=== PATIENT | female | born 1945 | race African-American/Black ===

== ENCOUNTER 2016-05-30 09:00 | Emergency (ER) | payer MEDICARE ==
[2016-05-30 10:06] VITALS: BP 118/77
[2016-05-30 11:13] LABS: Bilirubin,Urine NEG (Negative); Blood,Urine NEG (Negative); Ketones,Urine NEG (Negative); Leukocyte Esterase,Urine NEG (Negative); Mucus,Urine FEW /HPF; Nitrite,Urine NEG (Negative); Protein,Urine <15 mg/dL mg/dL (Negative); Urobilinogen,Urine < 2.0 mg/dL (<2.0)
[2016-05-30 11:15] LABS: WBC,Urine < 1.0 /HPF (0.0-6.0)
[2016-05-30] MEDS ORDERED: MOTRIN PO ONE (11:36)
--- NOTE | 2016-05-30 11:42 | Emergency Department Report ---
ED Female HPI - General Chief complaint: Urogenital-Female Stated complaint: ABDOMINAL PAIN Time Seen by Provider: 05/30/16 11:35 Source: patient Mode of arrival: Ambulatory Limitations: No Limitations - History of Present Illness Initial comments: 71-year-old female brought in by her daughter for complaint of suprapubic pain and urinary frequency. Patient has been followed by Dr. Martínez Vick urologist for urinary frequency and is currently on Toviaz 4 mg po qday for urinary incontinence. Patient has an appointment scheduled for 06/09/2016 for bladder scan cystoscopy. Patient denies any fever or chills no nausea no vomiting. Just urinary frequency worse at night and dysuria. - Related Data Home Medications Medication Instructions Recorded Confirmed Last Taken Budesoni/Formotero 160-4.5(Nf) 2 puff IH BID 05/30/16 05/30/16 05/30/16 [Symbicort 160-4.5 (Nf)] Fesoterodine Fumarate [Toviaz] 4 mg PO QDAY 05/30/16 05/30/16 05/30/16 Lansoprazole 30 mg PO DAILY 05/30/16 05/30/16 05/30/16 Oxybutynin [Ditropan] 5 mg PO DAILY 05/30/16 05/30/16 05/30/16 Allergies Allergy/AdvReac Type Severity Reaction Status Date / Time No Known Allergies Allergy Unverified 05/30/16 09:57 ED Review of Systems ROS: Stated complaint: ABDOMINAL PAIN Other details as noted in HPI ED Past Medical Hx - Past Medical History Previous Medical History?: Yes Hx Arthritis: Yes Hx Asthma: Yes Additional medical history: bladder pain - Surgical History Past Surgical History?: Yes Additional Surgical History: Cystoscopy, Bladder tact - Social History Smoking Status: Never Smoker Substance Use Type: Prescribed, Other - Medications Home Medications: Home Medications Medication Instructions Recorded Confirmed Last Taken Type Budesoni/Formotero 160-4.5(Nf) 2 puff IH BID 05/30/16 05/30/16 05/30/16 History [Symbicort 160-4.5 (Nf)] Fesoterodine Fumarate [Toviaz] 4 mg PO QDAY 05/30/16 05/30/16 05/30/16 History Lansoprazole 30 mg PO DAILY 05/30/16 05/30/1617 History Oxybutynin [Ditropan] 5 mg PO DAILY 05/30/16 05/30/16 05/30/16 History ED Physical Exam - General Limitations: No Limitations General appearance: alert, in no apparent distress - Head Head exam: Present: atraumatic, normocephalic - Respiratory Respiratory exam: Present: normal lung sounds bilaterally - Cardiovascular Cardiovascular Exam: Present: regular rate, normal rhythm. Absent: systolic murmur, diastolic murmur, rubs, gallop - GI/Abdominal GI/Abdominal exam: Present: soft, normal bowel sounds. Absent: distended, tenderness, guarding ED Course Vital Signs 05/30/16 10:01 Temperature 98 F Pulse Rate 69 Blood Pressure 118/77 O2 Sat by Pulse 99 Oximetry - Reevaluation(s) Reevaluation #1: 05/30/16 12:35 Patient reports she feels much better after pain medication. ED Medical Decision Making - Medical Decision Making Patient's been evaluated by this provider fast track. Review of labs show that there is no urinary tract infection. We will give patient ibuprofen 600 mg by mouth now and reevaluate patient's pain. She verbalizes understanding and need to keep her appointment with Dr. Talha Vick on 06/09/2016. Critical care attestation.: If time is entered above; I have spent that time in minutes in the direct care of this critically ill patient, excluding procedure time. ED Disposition Clinical Impression: Urinary incontinence Qualifiers: Urinary Incontinence type: unspecified incontinence Qualified Code(s): R32 - Unspecified urinary incontinence Disposition: DISCHARGED TO HOME OR SELFCARE Is pt being admited?: No Does the pt Need Aspirin: No Instructions: Urinary Incontinence (ED) Additional Instructions: Recommend free to take Tylenol or Motrin for pain. Keep your appointment with Dr. Garduno for 06/09/2016. Referrals: RENÉ POPE MD [Primary Care Provider] - 3-5 Days TALHA GARDUNO MD [Staff Physician] - 3-5 Days Forms: Work/School Release Form(ED), Accompanied Note
== END 2016-05-30 12:49 | disposition home or self-care (01) ==
LOC: ED 09:00
DX: R32 Unspecified urinary incontinence (principal); R10.9 Unspecified abdominal pain; J45.909 Unspecified asthma, uncomplicated; M19.90 Unspecified osteoarthritis, unspecified site
CPT/HCPCS: 81001; 99283

== ENCOUNTER 2017-02-22 02:07 | Emergency (ER) | payer MEDICARE ==
--- NOTE | 2017-02-22 02:52 | XRay Report ---
FINAL REPORT EXAM: XR CHEST ROUTINE 2V HISTORY: Shortness of breath FINDINGS:: Frontal and lateral views of the chest obtained. Heart borderline to mildly enlarged. Shallow inspiration. Nonspecific patchy linear opacities at the lung bases concerning for mild congestion and/or atelectasis. Pneumonia is not excluded. No effusion or pneumothorax. IMPRESSION:: Shallow inspiration. Nonspecific patchy linear opacities at the lung bases concerning for mild congestion and/or atelectasis. Pneumonia is not excluded.
[2017-02-22 03:01] LABS: Basophils % (Auto) 0.7 % (0.0-1.8); Hematocrit 41.8 % (30.3-42.9); Mean Corpuscular HGB Conc 34 % (30-34); Mean Corpuscular Hemoglobin 32 pg (28-32); Mean Corpuscular Volume 95 fl (79-97); Platelet Count 289 K/mm3 (140-440); Red Blood Count 4.42 M/mm3 (3.65-5.03); Red Cell Distribution Width 13.3 % (13.2-15.2); White Blood Count 9.5 K/mm3 (4.5-11.0)
[2017-02-22 03:23] LABS: Anion Gap 19 mmol/L; BUN/Creatinine Ratio 26; Blood Urea Nitrogen 13 mg/dL (7-17); Calcium 9.3 mg/dL (8.4-10.2); Carbon Dioxide 23 mmol/L (22-30); Chloride 99.6 mmol/L (98-107); Glucose 101 mg/dL (65-100); Sodium 138 mmol/L (137-145)
[2017-02-22] MEDS ORDERED: NACL 0.9% 1000 ML 1,000 ML IV ONE (04:24)
--- NOTE | 2017-02-22 04:34 | Emergency Department Report ---
- General Chief complaint: Dyspnea/Respdistress Stated complaint: SOB Time Seen by Provider: 02/22/17 04:21 Source: patient, family Mode of arrival: Ambulatory Limitations: Language Barrier - History of Present Illness Initial comments: 71 yo female with c/o one week of generalized weakness and insomnia. she had a face lift done one month ago in [place] and was doing fine. pt feels that her mouth is dry and hurts. MD Complaint: generalized weakness -: week(s) (1) Location: generalized Severity scale (0 -10): 9 Improves with: rest Worsens with: none Context: recent surgery Associated Symptoms: denies other symptoms - Related Data Home Medications Medication Instructions Recorded Confirmed Last Taken Budesoni/Formotero 160-4.5(Nf) 2 puff IH BID 05/30/16 05/30/16 05/30/16 [Symbicort 160-4.5 (Nf)] Fesoterodine Fumarate [Toviaz] 4 mg PO QDAY 05/30/16 05/30/16 05/30/16 Lansoprazole 30 mg PO DAILY 05/30/16 05/30/16 05/30/16 Oxybutynin [Ditropan] 5 mg PO DAILY 05/30/16 05/30/16 05/30/16 Previous Rx's Medication Instructions Recorded Last Taken Type Fluconazole [Diflucan TAB] 200 mg PO QDAY #14 tablet 02/22/17 Unknown Rx Allergies Allergy/AdvReac Type Severity Reaction Status Date / Time No Known Allergies Allergy Unverified 05/30/16 09:57 ED Review of Systems ROS: Stated complaint: SOB Other details as noted in HPI Constitutional: denies: chills, fever Eyes: denies: eye pain, eye discharge, vision change ENT: denies: ear pain, throat pain Respiratory: shortness of breath, SOB at rest. denies: cough, wheezing Cardiovascular: denies: chest pain, palpitations Endocrine: no symptoms reported Gastrointestinal: denies: abdominal pain, nausea, diarrhea Genitourinary: denies: urgency, dysuria, discharge Musculoskeletal: denies: back pain, joint swelling, arthralgia Skin: denies: rash, lesions Neurological: weakness. denies: headache, paresthesias Psychiatric: denies: anxiety, depression Hematological/Lymphatic: denies: easy bleeding, easy bruising ED Past Medical Hx - Past Medical History Previous Medical History?: Yes Hx Arthritis: Yes Hx Asthma: Yes Additional medical history: bladder pain, face lift,arthritis,asthma,cystoscopy, bladder tact - Surgical History Past Surgical History?: Yes Additional Surgical History: Cystoscopy, Bladder tact, Facelift 01/2017 - Social History Smoking Status: Never Smoker Substance Use Type: None - Medications Home Medications: Home Medications Medication Instructions Recorded Confirmed Last Taken Type Budesoni/Formotero 160-4.5(Nf) 2 puff IH BID 05/30/16 05/30/16 05/30/16 History [Symbicort 160-4.5 (Nf)] Fesoterodine Fumarate [Toviaz] 4 mg PO QDAY 05/30/16 05/30/16 05/30/16 History Lansoprazole 30 mg PO DAILY 05/30/16 05/30/16 05/30/16 History Oxybutynin [Ditropan] 5 mg PO DAILY 05/30/16 05/30/16 05/30/16 History Fluconazole [Diflucan TAB] 200 mg PO QDAY #14 tablet 02/22/17 Unknown Rx ED Physical Exam - General Limitations: Language Barrier (speaks Algerian) General appearance: alert, in no apparent distress - Head Head exam: Present: atraumatic, normocephalic, other (surgical scars around her ears) - Eye Eye exam: Present: normal appearance, EOMI - ENT ENT exam: Present: mucous membranes moist, other (edentulous) - Neck Neck exam: Present: normal inspection, full ROM - Respiratory Respiratory exam: Present: normal lung sounds bilaterally. Absent: respiratory distress, wheezes - Cardiovascular Cardiovascular Exam: Present: regular rate, normal rhythm - GI/Abdominal GI/Abdominal exam: Present: soft. Absent: tenderness, guarding, rebound - Rectal Rectal exam: Present: deferred - Extremities Exam Extremities exam: Present: normal inspection, full ROM. Absent: tenderness - Back Exam Back exam: Present: normal inspection, full ROM. Absent: tenderness - Neurological Exam Neurological exam: Present: alert, oriented X3, CN II-XII intact - Psychiatric Psychiatric exam: Present: normal affect, normal mood - Skin Skin exam: Present: warm, dry, intact, normal color. Absent: rash ED Course Vital Signs 02/22/17 02/22/17 02/22/17 02:20 03:29 03:30 Temperature 97.6 F Pulse Rate 79 66 64 Respiratory 18 16 16 Rate Blood Pressure Blood Pressure 132/88 [Right] O2 Sat by Pulse 98 Oximetry 02/22/17 02/22/17 02/22/17 03:31 03:33 03:34 Temperature Pulse Rate 73 68 68 Respiratory 19 17 17 Rate Blood Pressure 122/62 131/73 131/73 Blood Pressure [Right] O2 Sat by Pulse Oximetry 02/22/17 02/22/17 02/22/17 03:38 03:44 03:49 Temperature 98.3 F Pulse Rate 70 64 Respiratory 20 20 17 Rate Blood Pressure 123/68 Blood Pressure 122/62 [Right] O2 Sat by Pulse 97 Oximetry 02/22/17 02/22/17 02/22/17 03:51 03:52 03:53 Temperature Pulse Rate 68 61 77 Respiratory 18 18 19 Rate Blood Pressure 120/53 120/53 120/53 Blood Pressure [Right] O2 Sat by Pulse Oximetry 02/22/17 02/22/17 02/22/17 03:55 03:57 03:58 Temperature Pulse Rate 71 Respiratory 18 12 11 L Rate Blood Pressure 124/69 124/69 110/63 Blood Pressure [Right] O2 Sat by Pulse Oximetry 02/22/17 02/22/17 02/22/17 03:59 04:01 04:03 Temperature Pulse Rate Respiratory 15 18 13 Rate Blood Pressure 110/63 118/68 122/65 Blood Pressure [Right] O2 Sat by Pulse Oximetry 02/22/17 02/22/17 02/22/17 04:04 04:05 04:07 Temperature Pulse Rate Respiratory 13 18 17 Rate Blood Pressure 122/65 122/65 113/63 Blood Pressure [Right] O2 Sat by Pulse Oximetry 02/22/17 02/22/17 02/22/17 04:09 04:10 04:11 Temperature Pulse Rate Respiratory 17 17 16 Rate Blood Pressure 105/57 105/57 105/57 Blood Pressure [Right] O2 Sat by Pulse Oximetry 02/22/17 02/22/17 02/22/17 04:13 04:15 04:16 Temperature Pulse Rate Respiratory 18 17 17 Rate Blood Pressure 101/59 98/57 98/57 Blood Pressure [Right] O2 Sat by Pulse Oximetry 02/22/17 02/22/17 02/22/17 04:17 04:19 04:21 Temperature Pulse Rate Respiratory 17 18 14 Rate Blood Pressure 98/57 99/60 114/70 Blood Pressure [Right] O2 Sat by Pulse Oximetry 02/22/17 02/22/17 02/22/17 04:22 04:23 04:25 Temperature Pulse Rate Respiratory 16 18 17 Rate Blood Pressure 114/70 114/70 96/63 Blood Pressure [Right] O2 Sat by Pulse Oximetry 02/22/17 02/22/17 02/22/17 04:27 04:28 04:29 Temperature Pulse Rate Respiratory 17 16 18 Rate Blood Pressure 100/62 100/62 100/62 Blood Pressure [Right] O2 Sat by Pulse Oximetry 02/22/17 02/22/17 02/22/17 04:31 04:33 04:34 Temperature Pulse Rate Respiratory 19 19 18 Rate Blood Pressure 104/63 117/74 117/74 Blood Pressure [Right] O2 Sat by Pulse Oximetry 02/22/17 02/22/17 02/22/17 04:35 04:37 04:39 Temperature Pulse Rate Respiratory 18 13 13 Rate Blood Pressure 117/74 119/68 112/74 Blood Pressure [Right] O2 Sat by Pulse Oximetry 02/22/17 02/22/17 02/22/17 04:40 04:41 04:43 Temperature Pulse Rate Respiratory 14 15 13 Rate Blood Pressure 112/74 112/74 121/73 Blood Pressure [Right] O2 Sat by Pulse Oximetry 02/22/17 02/22/17 02/22/17 04:44 04:55 04:57 Temperature Pulse Rate Respiratory 12 13 15 Rate Blood Pressure 121/73 113/58 113/58 Blood Pressure [Right] O2 Sat by Pulse Oximetry 02/22/17 02/22/17 02/22/17 04:59 05:00 05:01 Temperature Pulse Rate Respiratory 17 18 17 Rate Blood Pressure 113/58 112/53 112/53 Blood Pressure [Right] O2 Sat by Pulse Oximetry 02/22/17 02/22/17 02/22/17 05:03 05:05 05:07 Temperature Pulse Rate Respiratory 17 17 18 Rate Blood Pressure 112/53 112/53 112/53 Blood Pressure [Right] O2 Sat by Pulse Oximetry 02/22/17 02/22/17 02/22/17 05:09 05:11 05:13 Temperature Pulse Rate Respiratory 18 15 26 H Rate Blood Pressure 112/53 112/53 112/53 Blood Pressure [Right] O2 Sat by Pulse Oximetry 02/22/17 05:15 Temperature Pulse Rate Respiratory 22 Rate Blood Pressure 112/53 Blood Pressure [Right] O2 Sat by Pulse Oximetry ED Medical Decision Making - Lab Data Result diagrams: 02/22/17 02:28 02/22/17 02:28 Critical care attestation.: If time is entered above; I have spent that time in minutes in the direct care of this critically ill patient, excluding procedure time. ED Disposition Clinical Impression: Dehydration, Thrush of mouth and esophagus Disposition: DC-01 TO HOME OR SELFCARE Is pt being admited?: No Does the pt Need Aspirin: No Condition: Stable Prescriptions: Fluconazole [Diflucan TAB] 200 mg PO QDAY #14 tablet Referrals: PRIMARY CARE, [Primary Care Provider] - 3-5 Days
[2017-02-22 05:04] LABS: Alanine Aminotransferase 33 units/L (7-56); Albumin/Globulin Ratio 1.2 %; Alkaline Phosphatase 84 units/L (35-129); Total Protein 7.3 g/dL (6.3-8.2)
[2017-02-22 05:05] LABS: Bilirubin,Direct < 0.2 mg/dL (0-0.2)
--- NOTE | 2017-02-22 05:07 | XRay Report ---
FINAL REPORT EXAM: XR CHEST ROUTINE 2V HISTORY: weakness TECHNIQUE: A repeat PA view of the chest was obtained and compared to the earlier study of the same date. FINDINGS: Heart size mediastinum appear normal. The thoracic aorta is mildly tortuous. There are no discrete infiltrates in the bases. Pleural fluid is not seen. There EKG leads overlying chest wall. Bones and soft tissues do not show any acute changes. IMPRESSION: No active chest disease.
[2017-02-22 07:40] VITALS: BP 114/72
[2017-02-22] MEDS ORDERED: DIFLUCAN 200 MG/100 ML BAG IV ONE (10:00)
== END 2017-02-22 08:20 | disposition home or self-care (01) ==
LOC: ED 02:07
DX: E86.0 Dehydration (principal); B37.81 Candidal esophagitis; B37.0 Candidal stomatitis; M19.90 Unspecified osteoarthritis, unspecified site; J45.909 Unspecified asthma, uncomplicated
CPT/HCPCS: 36415; 71020; 80048; 80074; 83880; 84484; 85025; 85379; 87116; 87430; 93005; 93010; 96361; 96365; 99284; J1450; J7030

== ENCOUNTER 2017-03-11 20:00 | Emergency (ER) | payer MEDICARE ==
[2017-03-11 21:40] LABS: Basophils % (Auto) 1.1 % (0.0-1.8); Eosinophils % (Auto) 0.8 % (0.0-4.3); Hematocrit 41.2 % (30.3-42.9); Hemoglobin 13.9 gm/dl (10.1-14.3); Mean Corpuscular HGB Conc 34 % (30-34); Mean Corpuscular Hemoglobin 32 pg (28-32); Mean Corpuscular Volume 94 fl (79-97); Platelet Count 253 K/mm3 (140-440); Red Blood Count 4.39 M/mm3 (3.65-5.03); Red Cell Distribution Width 13.3 % (13.2-15.2)
[2017-03-11 21:53] LABS: Anion Gap 16 mmol/L; BUN/Creatinine Ratio 32; Blood Urea Nitrogen 16 mg/dL (7-17); Calcium 9.1 mg/dL (8.4-10.2); Carbon Dioxide 26 mmol/L (22-30); Chloride 101.2 mmol/L (98-107); Glucose 113 mg/dL (65-100); Sodium 139 mmol/L (137-145)
--- NOTE | 2017-03-11 22:25 | XRay Report ---
FINAL REPORT EXAM: XR CHEST ROUTINE 2V HISTORY: Shortness of breath TECHNIQUE: PA and lateral views of the chest PRIORS: CXR 02/22/2017 FINDINGS: Lines, tubes, and devices: N/A Lungs and pleura: Trachea is normal in position. Mild new infiltrate in the left base is present. Cardiomediastinal silhouette: Cardiac and mediastinal silhouettes are unremarkable. Other: Bony structures are stable with superior endplate narrowing at T12 and L2. IMPRESSION: Mild new left basilar infiltrate
[2017-03-12 04:43] VITALS: BP 116/76
== END 2017-03-12 05:13 | disposition left against medical advice (07) ==
LOC: ED 20:00
DX: R06.09 Other forms of dyspnea (principal); Z53.21 Procedure and treatment not carried out due to patient leaving prior to being seen by health care provider
CPT/HCPCS: 36415; 71020; 80048; 84484; 85025; 93005; 93010

== ENCOUNTER 2017-03-28 20:54 | Emergency (ER) | payer MEDICARE ==
[2017-03-28 21:41] LABS: Basophils % (Auto) 0.6 % (0.0-1.8); Eosinophils % (Auto) 0.8 % (0.0-4.3); Hematocrit 42.6 % (30.3-42.9); Mean Corpuscular HGB Conc 33 % (30-34); Mean Corpuscular Hemoglobin 31 pg (28-32); Mean Corpuscular Volume 94 fl (79-97); Platelet Count 267 K/mm3 (140-440); Red Blood Count 4.55 M/mm3 (3.65-5.03); Red Cell Distribution Width 13.2 % (13.2-15.2); White Blood Count 9.7 K/mm3 (4.5-11.0)
[2017-03-28 21:46] LABS: Alanine Aminotransferase 34 units/L (7-56); Albumin 4.2 g/dL (3.9-5); Albumin/Globulin Ratio 1.5 %; Alkaline Phosphatase 85 units/L (35-129); Anion Gap 18 mmol/L; BUN/Creatinine Ratio 18; Blood Urea Nitrogen 9 mg/dL (7-17); Calcium 9.2 mg/dL (8.4-10.2); Carbon Dioxide 25 mmol/L (22-30); Chloride 102.5 mmol/L (98-107); Glucose 102 mg/dL (65-100); Lipase 22 units/L (13-60); Potassium 4.1 mmol/L (3.6-5.0); Sodium 141 mmol/L (137-145)
[2017-03-28 21:46] LABS: Bilirubin,Urine NEG (Negative); Blood,Urine MOD (Negative); Ketones,Urine NEG (Negative); Leukocyte Esterase,Urine TR (Negative); Mucus,Urine FEW /HPF; Nitrite,Urine NEG (Negative); Protein,Urine <15 mg/dL mg/dL (Negative); Urobilinogen,Urine < 2.0 mg/dL (<2.0)
--- NOTE | 2017-03-29 05:46 | Emergency Department Report ---
ED Abdominal Pain HPI - General Chief Complaint: Abdominal Pain Stated Complaint: WEAKNESS/BACK PAIN Time Seen by Provider: 03/29/17 04:24 Source: family Mode of arrival: Ambulatory Limitations: Language Barrier - History of Present Illness Initial Comments: 71 yo female who comes in today due to abdominal/flank pain. She states that the abdominal pain is diffuse, achy/crampy, with radiation to her right flank pain. She states that she is able to eat with no nausea/vomiting. Also admits to having constipation in the past. Last bm was on Monday. MD Complaint: abdominal pain -: days(s) (3) Location: diffuse Radiation: R flank Migration to: no migration Severity: moderate Severity scale (0 -10): 4 Quality: cramping, aching Consistency: constant Improves With: nothing Worsens With: nothing Context: other (hx of constipation ) Associated Symptoms: other (none) Treatments Prior to Arrival: other (none) - Related Data Home Medications Medication Instructions Recorded Confirmed Last Taken Budesoni/Formotero 160-4.5(Nf) 2 puff IH BID 05/30/16 05/30/16 05/30/16 [Symbicort 160-4.5 (Nf)] Fesoterodine Fumarate [Toviaz] 4 mg PO QDAY 05/30/16 05/30/16 05/30/16 Lansoprazole 30 mg PO DAILY 05/30/16 05/30/16 05/30/16 Oxybutynin [Ditropan] 5 mg PO DAILY 05/30/16 05/30/16 05/30/16 Previous Rx's Medication Instructions Recorded Last Taken Type Fluconazole [Diflucan TAB] 200 mg PO QDAY #14 tablet 02/22/17 Unknown Rx Allergies Allergy/AdvReac Type Severity Reaction Status Date / Time No Known Allergies Allergy Verified 03/28/17 20:58 ED Review of Systems ROS: Stated complaint: WEAKNESS/BACK PAIN Other details as noted in HPI Constitutional: denies: chills, fever Eyes: denies: eye pain, eye discharge, vision change ENT: denies: ear pain, throat pain Respiratory: denies: cough, shortness of breath, wheezing Cardiovascular: denies: chest pain, palpitations Endocrine: no symptoms reported Gastrointestinal: as per HPI, abdominal pain Genitourinary: denies: urgency, dysuria, discharge Musculoskeletal: as per HPI, back pain Skin: denies: rash, lesions Neurological: denies: headache, weakness, paresthesias Psychiatric: denies: anxiety, depression Hematological/Lymphatic: denies: easy bleeding, easy bruising ED Past Medical Hx - Past Medical History Hx Arthritis: Yes Hx Asthma: Yes Additional medical history: bladder pain, face lift,arthritis,asthma,cystoscopy, bladder tact, bronchitis - Surgical History Additional Surgical History: Cystoscopy, Bladder tact, Facelift 01/2017 - Social History Smoking Status: Never Smoker Substance Use Type: None - Medications Home Medications: Home Medications Medication Instructions Recorded Confirmed Last Taken Type Budesoni/Formotero 160-4.5(Nf) 2 puff IH BID 05/30/16 05/30/16 05/30/16 History [Symbicort 160-4.5 (Nf)] Fesoterodine Fumarate [Toviaz] 4 mg PO QDAY 05/30/16 05/30/16 05/30/16 History Lansoprazole 30 mg PO DAILY 05/30/16 05/30/16 05/30/16 History Oxybutynin [Ditropan] 5 mg PO DAILY 05/30/16 05/30/16 05/30/16 History Fluconazole [Diflucan TAB] 200 mg PO QDAY #14 tablet 02/22/17 Unknown Rx ED Physical Exam - General Limitations: Language Barrier General appearance: alert, in no apparent distress - Head Head exam: Present: atraumatic, normocephalic - Eye Eye exam: Present: normal appearance - ENT ENT exam: Present: mucous membranes moist - Neck Neck exam: Present: normal inspection - Respiratory Respiratory exam: Present: normal lung sounds bilaterally. Absent: respiratory distress - Cardiovascular Cardiovascular Exam: Present: regular rate, normal rhythm. Absent: systolic murmur, diastolic murmur, rubs, gallop - GI/Abdominal GI/Abdominal exam: Present: soft, normal bowel sounds - Rectal Rectal exam: Present: deferred - Extremities Exam Extremities exam: Present: normal inspection - Back Exam Back exam: Present: CVA tenderness (R) - Neurological Exam Neurological exam: Present: alert, oriented X3 - Psychiatric Psychiatric exam: Present: normal affect, normal mood - Skin Skin exam: Present: warm, dry, intact, normal color. Absent: rash ED Course Vital Signs 03/28/17 03/29/17 03/29/17 20:58 01:54 02:00 Temperature 97.7 F Pulse Rate 84 Respiratory 16 Rate Blood Pressure 123/79 121/69 102/58 O2 Sat by Pulse 97 98 96 Oximetry 03/29/17 03/29/17 03/29/17 02:01 04:06 04:30 Temperature Pulse Rate Respiratory 18 Rate Blood Pressure 102/58 102/58 O2 Sat by Pulse 97 97 98 Oximetry 03/29/17 05:30 Temperature Pulse Rate Respiratory Rate Blood Pressure 119/78 O2 Sat by Pulse 95 Oximetry - Reevaluation(s) Reevaluation #1: 03/29/17 05:[address] abdomen/pelvis without contrast (stone protocol) results. Home if CT unremarkable. Reevaluation #2: 03/29/17 06:01 Discussed the patient with Dr. Wadsworth. Dr. Wadsworth to assume care of the patient. ED Medical Decision Making - Lab Data Result diagrams: 03/28/17 21:01 03/28/17 21:01 Critical care attestation.: If time is entered above; I have spent that time in minutes in the direct care of this critically ill patient, excluding procedure time. ED Disposition Condition: Stable Instructions: Abdominal Pain (ED) Referrals: RENÉ POPE MD [Primary Care Provider] - 3-5 Days
--- NOTE | 2017-03-29 06:07 | XRay Report ---
FINAL REPORT EXAM: XR ABD SERIES W CXR 1V HISTORY: ABDOMINAL PAIN TECHNIQUE: A portable upright view the chest was obtained along with two views of the abdomen. The chest is compared to the study of 03/11/2017. FINDINGS: The chest reveals normal heart size and mediastinum. The lungs do not show infiltrates or effusions. The bones and soft tissues do not show any acute changes. The abdominal bowel gas pattern reveals a moderate amount retained feces. There are no suspicious fluid levels. Free air is not seen. There is no evidence of mass effect or suspicious calcifications. The skeletal structures reveal arthritic changes in the lumbar spine with a chronic compression fracture of L2. IMPRESSION: No active chest disease. Moderate amount retained feces in the colon. No acute process identified in the abdomen and pelvis.
--- NOTE | 2017-03-29 06:53 | Cat Scan Report ---
FINAL REPORT EXAM: CT ABDOMEN PELVIS WO CON HISTORY: abdominal/flank pain TECHNIQUE: Routine axial imaging was obtained of the abdomen and pelvis without oral or IV contrast. Sagittal and coronal reconstructions were reviewed. FINDINGS: The lung bases reveal interstitial prominence bilaterally which appears to be on a chronic basis. Pleural fluid is not seen. The heart is mildly enlarged. The liver, gallbladder, pancreas, spleen, and adrenal glands appear normal. The kidneys show no evidence of stones or hydronephrosis. Along the posterior wall of the middle 3rd of left kidney is 14.5 millimeter nodular density in the cortex. This may represent a small cortical cyst. The bowel loops are normal in caliber and course. The appendix is at the upper limits normal in size. There is no evidence of inflammatory changes of the appendix. There no evidence of free fluid or adenopathy. In the pelvis the uterus and bladder appear normal. The skeletal structures reveal multilevel disc degeneration in the lumbar spine. IMPRESSION: No evidence of renal stones or hydronephrosis. 14.5 millimeter cortical lesion in the middle 3rd of left kidney. This may represent a small cortical cyst. Ultrasound is recommended for definitive evaluation Increased markings in both lung bases which may be on a chronic basis.
--- NOTE | 2017-03-29 09:40 | Emergency Department Report ---
Blank Doc - Documentation Documentation: I examine the patient, she stated that she is feeling better but she still having some fullness in her abdomen, she stated that she did not have any bowel movement for the last 2-3 days. Patient denied any nausea or vomiting. No fever. Patient daughter told me that her mother suffer constipation. Her abdomen is soft, nontender, no guarding, no rebound tenderness, bowel sounds are normal. CT abdomen and pelvis results reviewed and as follows: Referring Physician: AZUCENA LOUIS Patient Name: RAFAELA LITTLE Date of : 1945 Sex: Female Report Date: 2017-03-29 Report Status: Finalized Findings [facility] [address] [place] [address] Cat Scan Report Signed Patient: RAFAELA LITTLE MR#: [id number] : 1945 Acct:[id number] Age/Sex: 71 / F ADM Date: 03/28/17 Loc: ED Attending Dr: Ordering Physician: AZUCENA LOUIS MD Date of Service: 03/29/17 Procedure(s): CT abdomen pelvis wo con Accession Number(s): [id number] cc: AZUCENA LOUIS MD FINAL REPORT EXAM: CT ABDOMEN PELVIS WO CON HISTORY: abdominal/flank pain TECHNIQUE: Routine axial imaging was obtained of the abdomen and pelvis without oral or IV contrast. Sagittal and coronal reconstructions were reviewed. FINDINGS: The lung bases reveal interstitial prominence bilaterally which appears to be on a chronic basis. Pleural fluid is not seen. The heart is mildly enlarged. The liver, gallbladder, pancreas, spleen, and adrenal glands appear normal. The kidneys show no evidence of stones or hydronephrosis. Along the posterior wall of the middle 3rd of left kidney is 14.5 millimeter nodular density in the cortex. This may represent a small cortical cyst. The bowel loops are normal in caliber and course. The appendix is at the upper limits normal in size. There is no evidence of inflammatory changes of the appendix. There no evidence of free fluid or adenopathy. In the pelvis the uterus and bladder appear normal. The skeletal structures reveal multilevel disc degeneration in the lumbar spine. IMPRESSION: No evidence of renal stones or hydronephrosis. 14.5 millimeter cortical lesion in the middle 3rd of left kidney. This may represent a small cortical cyst. Ultrasound is recommended for definitive evaluation Increased markings in both lung bases which may be on a chronic basis. Transcribed By: RB Dictated By: LORAINE PALAFOX MD Electronically Authenticated By: LORAINE PALAFOX MD Signed Date/Time: 03/29/17249 DD/ 9 TD/TT: 03/29/17249 Patient will be discharged with Fleet enema, lactulose and Colace prescription.
[2017-03-29 09:53] VITALS: BP 117/76
== END 2017-03-29 09:54 | disposition home or self-care (01) ==
LOC: ED 20:54
DX: R10.30 Lower abdominal pain, unspecified (principal); K59.00 Constipation, unspecified
CPT/HCPCS: 36415; 74022; 74176; 80053; 81001; 83690; 85025

== ENCOUNTER 2017-11-20 16:02 | Emergency (ER) | payer MEDICARE ==
[2017-11-20] MEDS ORDERED: NACL 0.9% 1000 ML 1,000 ML IV ONE (16:20)
[2017-11-20 16:55] LABS: Basophils # (Auto) 0.1 K/mm3 (0.0-0.1); Basophils % (Auto) 0.6 % (0.0-1.8); Eosinophils # (Auto) 0.2 K/mm3 (0.0-0.4); Eosinophils % (Auto) 1.2 % (0.0-4.3); Hemoglobin 13.1 gm/dl (10.1-14.3); Lymphocytes # (Auto) 1.8 K/mm3 (1.2-5.4); Lymphocytes % (Auto) 13.2 % (13.4-35.0); Mean Corpuscular HGB Conc 33 % (30-34); Mean Corpuscular Hemoglobin 31 pg (28-32); Mean Corpuscular Volume 94 fl (79-97); Monocytes # (Auto) 0.8 K/mm3 (0.0-0.8); Monocytes % (Auto) 5.8 % (0.0-7.3); Platelet Count 252 K/mm3 (140-440); Red Blood Count 4.26 M/mm3 (3.65-5.03); Red Cell Distribution Width 13.2 % (13.2-15.2)
[2017-11-20 17:06] LABS: Alanine Aminotransferase 42 units/L (7-56); Albumin 3.8 g/dL (3.9-5); BUN/Creatinine Ratio 40; Blood Urea Nitrogen 24 mg/dL (7-17); Calcium 9.4 mg/dL (8.4-10.2); Hemolysis Index 2; Lipase 86 units/L (13-60)
[2017-11-20 17:25] LABS: Bilirubin,Urine NEG (Negative); Blood,Urine NEG (Negative); Calcium Oxalate Crystals,Urine 3+; Mucus,Urine 3+ /HPF
[2017-11-20 17:36] LABS: Color,Urine Yellow (Yellow)
[2017-11-20] MEDS ORDERED: ZOSYN/NS 4.5GM/100ML 4.5 GM/100 ML VIAL IV ONE (23:02)
[2017-11-20] MEDS ORDERED: ZOFRAN IV ONE (23:07)
[2017-11-20] MEDS ORDERED: MORPHINE IV ONE (23:07)
--- NOTE | 2017-11-20 23:11 | Emergency Department Report ---
ED Abdominal Pain HPI - General Chief Complaint: Abdominal Pain Stated Complaint: STOMACH/BACK PAIN Time Seen by Provider: 11/20/17 23:01 Source: patient, family Mode of arrival: Ambulatory Limitations: Language Barrier - History of Present Illness Initial Comments: Patient is 72 years old female with history of asthma and arthritis. Patient presented to the ER complaining of right upper quadrant abdominal pain associated to his nausea. Patient stated that pain started after she ate some food this afternoon. Patient denied any fever or diarrhea. Patient denied chest pain or shortness of breath. MD Complaint: abdominal pain -: This morning Location: RUQ Radiation: back Migration to: no migration Severity scale (0 -10): 8 Quality: sharp Associated Symptoms: nausea - Related Data Home Medications Medication Instructions Recorded Confirmed Last Taken Budesoni/Formotero 160-4.5(Nf) 2 puff IH BID 05/30/16 05/30/16 05/30/16 [Symbicort 160-4.5 (Nf)] Fesoterodine Fumarate [Toviaz] 4 mg PO QDAY 05/30/16 05/30/16 05/30/16 Lansoprazole 30 mg PO DAILY 05/30/16 05/30/16 05/30/16 Oxybutynin [Ditropan] 5 mg PO DAILY 05/30/16 05/30/16 05/30/16 Previous Rx's Medication Instructions Recorded Last Taken Type Fluconazole [Diflucan TAB] 200 mg PO QDAY #14 tablet 02/22/17 Unknown Rx Docusate Sodium [Colace] 100 mg PO BID PRN #60 capsule 03/29/17 Unknown Rx Lactulose 10 gm PO DAILY PRN #150 ml 03/29/17 Unknown Rx Sodium Phosphate,Hardin-Dibasic 118 ml RC ONCE #1 enema 03/29/17 Unknown Rx [Fleet Enema] Allergies Allergy/AdvReac Type Severity Reaction Status Date / Time No Known Allergies Allergy Verified 03/28/17 20:58 ED Review of Systems ROS: Stated complaint: STOMACH/BACK PAIN Other details as noted in HPI Comment: All other systems reviewed and negative Constitutional: denies: chills, fever Cardiovascular: denies: chest pain Gastrointestinal: abdominal pain, nausea. denies: vomiting, diarrhea, constipation, hematemesis, melena, hematochezia Musculoskeletal: denies: back pain Neurological: denies: headache, weakness, numbness, paresthesias, confusion ED Past Medical Hx - Past Medical History Previous Medical History?: Yes Hx Arthritis: Yes Hx Asthma: Yes Additional medical history: bladder pain, face lift,arthritis,asthma,cystoscopy, bladder tact, bronchitis - Surgical History Past Surgical History?: Yes Additional Surgical History: Cystoscopy, Bladder tact, Facelift 01/2017 - Social History Smoking Status: Never Smoker Substance Use Type: None - Medications Home Medications: Home Medications Medication Instructions Recorded Confirmed Last Taken Type Budesoni/Formotero 160-4.5(Nf) 2 puff IH BID 05/30/16 05/30/16 05/30/16 History [Symbicort 160-4.5 (Nf)] Fesoterodine Fumarate [Toviaz] 4 mg PO QDAY 05/30/16 05/30/16 05/30/16 History Lansoprazole 30 mg PO DAILY 05/30/16 05/30/16 05/30/16 History Oxybutynin [Ditropan] 5 mg PO DAILY 05/30/16 05/30/16 05/30/16 History Fluconazole [Diflucan TAB] 200 mg PO QDAY #14 tablet 02/22/17 Unknown Rx Docusate Sodium [Colace] 100 mg PO BID PRN #60 capsule 03/29/17 Unknown Rx Lactulose 10 gm PO DAILY PRN #150 ml 03/29/17 Unknown Rx Sodium Phosphate,Hardin-Dibasic 118 ml RC ONCE #1 enema 03/29/17 Unknown Rx [Fleet Enema] ED Physical Exam - General Limitations: Language Barrier General appearance: alert, in no apparent distress - Head Head exam: Present: atraumatic, normocephalic, normal inspection - ENT ENT exam: Present: normal exam, normal orophraynx, mucous membranes moist - Neck Neck exam: Present: normal inspection, full ROM. Absent: tenderness, meningismus, lymphadenopathy, thyromegaly - Respiratory Respiratory exam: Present: normal lung sounds bilaterally - Cardiovascular Cardiovascular Exam: Present: regular rate, normal rhythm, normal heart sounds - GI/Abdominal GI/Abdominal exam: Present: soft, tenderness (right upper quadrant), normal bowel sounds. Absent: distended, guarding, rebound, rigid, organomegaly, mass, bruit, pulsatile mass, hernia - Extremities Exam Extremities exam: Present: normal inspection, full ROM, normal capillary refill. Absent: calf tenderness - Neurological Exam Neurological exam: Present: alert, oriented X3, CN II-XII intact, normal gait, reflexes normal - Skin Skin exam: Present: warm, intact, normal color ED Course Vital Signs 11/20/17 11/20/17 16:14 20:35 Temperature 97.5 F L 98.2 F Pulse Rate 60 63 Respiratory 18 18 Rate Blood Pressure 95/71 118/67 O2 Sat by Pulse 96 98 Oximetry - Reevaluation(s) Reevaluation #1: 11/21/17 00:09 I discussed the patient is Dr. Wilson from surgery, he advised to see the patient pain is controlled patient can be discharged to follow-up with him in his office today for possible elective cholecystectomy already the patient then is not controlled and be admitted to the hospitalist and he will be consulted. ED Medical Decision Making - Lab Data Result diagrams: 11/20/17 16:23 11/20/17 16:23 - Medical Decision Making Patient stated that she is feeling much better, pain completely resolved.. Per Dr. Wilson patient can be discharged home and follow-up with him in his office today. Patient and daughter understood that and instruction very well. Critical care attestation.: If time is entered above; I have spent that time in minutes in the direct care of this critically ill patient, excluding procedure time. ED Disposition Clinical Impression: Abdominal pain, Gallbladder calculus Disposition: DC-01 TO HOME OR SELFCARE Is pt being admited?: No Condition: Stable Instructions: Abdominal Pain (ED), Biliary Colic (ED), Cholecystitis (ED) Referrals: JOHN WILSON MD [Staff Physician] - 24 Hours
--- NOTE | 2017-11-20 23:21 | Ultrasound Report ---
FINAL REPORT EXAM: US ABDOMEN LIMITED HISTORY: RUQ pain with h/o gallstones TECHNIQUE: Grayscale and color-flow imaging of the right upper quadrant was performed. Comparison: CT abdomen and pelvis dated March 29, 2017 FINDINGS: Liver: Visualization of detail is somewhat limited by artifact likely created by body habitus. There is increased echogenicity of the liver suggestive of fatty infiltration. Gallbladder: Moderately distended and contains numerous shadowing gallstones. There is no demonstration of pericholecystic fluid. There is increased thickness of the gallbladder wall (3.6 millimeters).. This is a nonspecific finding. Common bile duct: Dilated (9.1 millimeters). Right kidney: Measures 11.4 centimeters in the maximal craniocaudal dimension. There is no demonstration of hydronephrosis, renal calculi or renal mass. IMPRESSION: 1. Numerous gallstones within the gallbladder with increased thickness of the gallbladder wall 2. Dilated common bile duct. This appears to be new since the previous CT abdomen and pelvis dated March 29, 2017.
[2017-11-21 02:10] VITALS: BP 110/56
== END 2017-11-21 02:17 | disposition home or self-care (01) ==
LOC: ED 16:02
DX: K80.20 Calculus of gallbladder without cholecystitis without obstruction (principal); M19.90 Unspecified osteoarthritis, unspecified site; J45.909 Unspecified asthma, uncomplicated
CPT/HCPCS: 36415; 76705; 80053; 81001; 82962; 83690; 85025; 93005; 93010; 96365; 96375; 99284; J2270; J2405; J2543

== ENCOUNTER 2018-10-01 05:01 | Observation (INO) | payer MEDICARE ==
[2018-10-01] MEDS ORDERED: ASPIRIN PO ONE (05:09)
[2018-10-01 05:32] LABS: Basophils # (Auto) 0.1 K/mm3 (0.0-0.1); Basophils % (Auto) 1.3 % (0.0-1.8); Eosinophils # (Auto) 0.3 K/mm3 (0.0-0.4); Eosinophils % (Auto) 5.2 % (0.0-4.3); Hematocrit 41.2 % (30.3-42.9); Lymphocytes # (Auto) 1.8 K/mm3 (1.2-5.4); Lymphocytes % (Auto) 26.1 % (13.4-35.0); Mean Corpuscular HGB Conc 34 % (30-34); Mean Corpuscular Volume 94 fl (79-97); Monocytes # (Auto) 0.6 K/mm3 (0.0-0.8); Monocytes % (Auto) 9.1 % (0.0-7.3); Platelet Count 246 K/mm3 (140-440); Red Blood Count 4.38 M/mm3 (3.65-5.03); Red Cell Distribution Width 12.9 % (13.2-15.2)
[2018-10-01 05:56] LABS: BUN/Creatinine Ratio 30; Blood Urea Nitrogen 15 mg/dL (7-17); Calcium 9.1 mg/dL (8.4-10.2); Hemolysis Index 7
[2018-10-01] MEDS ORDERED: PROVENTIL IH ONE (07:36)
[2018-10-01] MEDS ORDERED: ATROVENT IH ONE (07:36)
[2018-10-01] MEDS ORDERED: SOLU-Medrol IV ONE (07:36)
[2018-10-01] MEDS ORDERED: NACL 0.9% 1000 ML 1,000 ML IV ONE (07:36)
--- NOTE | 2018-10-01 07:40 | Emergency Department Report ---
HPI - General Chief Complaint: Chest Pain Time Seen by Provider: 10/01/18 07:12 - HPI HPI: 73-year-old female presents to the emergency department with a complaint of a few weeks of some intermittent chest tightness and heaviness and shortness of breath. Patient feels that there are some gas pains in the upper chest. She has a past medical history of asthma, high cholesterol. She denies any tobacco or illicit drug use. She was seen her primary care physician recently, Dr. Rios, to increase her use of her albuterol inhaler or nebulizer treatments but this has not helped. No recent travel or sick contacts at home. Patient does not speak much Uzbek so her daughter is currently at bedside during translation. ED Past Medical Hx - Past Medical History Hx Arthritis: Yes Hx Asthma: Yes Additional medical history: bladder pain, face lift,arthritis,asthma,cystoscopy,bladder tact, bronchitis - Surgical History Past Surgical History?: Yes Hx Cholecystectomy: Yes Additional Surgical History: Cystoscopy, Bladder tact, Facelift 01/2017 - Social History Smoking Status: Never Smoker Substance Use Type: None - Medications Home Medications: Home Medications Medication Instructions Recorded Confirmed Last Taken Type Budesoni/Formotero 160-4.5(Nf) 2 puff IH BID 05/30/16 05/30/16 05/30/16 History [Symbicort 160-4.5 (Nf)] Fesoterodine Fumarate [Toviaz] 4 mg PO QDAY 05/30/16 05/30/16 05/30/16 History Lansoprazole 30 mg PO DAILY 05/30/16 05/30/16 05/30/16 History Oxybutynin [Ditropan] 5 mg PO DAILY 05/30/16 05/30/16 05/30/16 History Fluconazole [Diflucan TAB] 200 mg PO QDAY #14 tablet 02/22/17 Unknown Rx Docusate Sodium [Colace] 100 mg PO BID PRN #60 capsule 03/29/17 Unknown Rx Lactulose 10 gm PO DAILY PRN #150 ml 03/29/17 Unknown Rx Sodium Phosphate,[place]ley-Dibasic 118 ml RC ONCE #1 enema 03/29/17 Unknown Rx [Fleet Enema] Amoxicillin/Potassium Clav 1 each PO BID #14 tablet 11/21/17 Unknown Rx [Augmentin 875-125 Tablet] Ondansetron [Zofran Odt] 4 mg PO Q8HR PRN #14 tab.rapdis 11/21/17 Unknown Rx oxyCODONE /ACETAMINOPHEN [Percocet 1 tab PO Q6HR PRN #14 tablet 11/21/17 Unknown Rx 5/325] ED Review of Systems ROS: Stated complaint: CHEST PAIN/HARD TO BREATH Other details as noted in HPI Comment: All other systems reviewed and negative Constitutional: denies: chills, fever Eyes: denies: eye pain, vision change ENT: denies: ear pain, throat pain Respiratory: cough, shortness of breath, wheezing Cardiovascular: chest pain. denies: edema Gastrointestinal: denies: abdominal pain, vomiting Genitourinary: denies: dysuria, discharge Musculoskeletal: denies: back pain, arthralgia Skin: denies: rash, lesions Neurological: denies: headache, weakness Physical Exam - Physical Exam Vital Signs: Vital Signs 10/01/18 10/01/18 05:03 06:10 Temperature 98.2 F 98.1 F Pulse Rate 69 67 Respiratory 18 19 Rate Blood Pressure 135/81 Blood Pressure 122/85 [Left] O2 Sat by Pulse 96 94 Oximetry Physical Exam: GENERAL: The patient is well-developed well-nourished. HENT: Normocephalic. Atraumatic. Patient has moist mucous membranes. EYES: Extraocular motions are intact. NECK: Supple. Trachea is midline. CHEST/LUNGS: Mild wheezing throughout the chest. No tachypnea or accessory muscle use. There is no respiratory distress noted. HEART/CARDIOVASCULAR: Regular. There is no tachycardia. There is no murmur. ABDOMEN: Abdomen is soft, nontender. Patient has normal bowel sounds. There is no abdominal distention. SKIN: Skin is warm and dry. NEURO: The patient is awake, alert, and oriented. The patient is cooperative. The patient has no focal neurologic deficits. The patient has normal speech. MUSCULOSKELETAL: There is no tenderness or deformity. There is no evidence of acute injury. ED Course Vital Signs 10/01/18 10/01/18 05:03 06:10 Temperature 98.2 F 98.1 F Pulse Rate 69 67 Respiratory 18 19 Rate Blood Pressure 135/81 Blood Pressure 122/85 [Left] O2 Sat by Pulse 96 94 Oximetry ED Medical Decision Making - Lab Data Result diagrams: 10/01/18 12:56 10/01/18 12:56 - EKG Data -: EKG Interpreted by Me EKG shows normal: sinus rhythm, axis, intervals, QRS complexes, ST-T waves Rate: normal - EKG Data When compared to previous EKG there are: no significant change Interpretation: unchanged when compared t (11/20/17) - Radiology Data Radiology results: report reviewed, image reviewed interpreted by me: Chest x-ray does not show any acute process. There are no pleural effusions, obvious pneumonia and there is no pneumothorax. CTA CHEST: HISTORY: chest pain. COMPARISON: none. TECHNIQUE: Helical CT in 1.25mm intervals following IV contrast. Pulmonary embolus protocol. Sagittal and coronal reformatted images. Rotational MIP images. FINDINGS: Contrast bolus is satisfactory. No pulmonary embolus is identified. Thyroid gland: Normal. Tracheobronchial tree: Normal. Esophagus: Normal. Heart: Normal. Pericardium: Normal. Mediastinum: Normal. Lung Dinero: Minor segmental atelectasis is identified in the middle lobe, right lower lobe and lingula. No evidence for pneumonia or mass. Pleural Spaces: Normal. Musculoskeletal: Osteopenia. Healing non-displaced left anterior third and fourth rib fractures are identified. IMPRESSION: No evidence for pulmonary embolus. Mild bilateral atelectatic changes. Healing left anterior third and fourth rib fractures. Transcribed By: TTR Dictated By: JENNIFER MURRELL JR, MD Electronically Authenticated By: JENNIFER MURRELL JR, MD Signed Date/Time: 10/01/18 1057 - Medical Decision Making Patient presents to the emergency department with complaint of some back pain, chest pain and shortness of breath. She has some mild bronchospasm but does not appear in any respiratory distress. She was given some steroids and a breathing treatment and given an aspirin. Chest x-ray does not show any focal consolidation, pneumothorax, pneumonia, pleural effusions, or any other acute process. Patient has had negative troponins 2 doses 5. She had a slightly elevated and equivocal d-dimer so a CT angiography of the chest was done that did not show any signs of any pulmonary embolism, dissection or aneurysm. Patient still continues to have some mild chest pressure and has not had a full cardiac workup. Therefore she will be admitted to the hospital for further evaluation and treatment and was accepted for admission by the hospitalist service. - Differential Diagnosis [place], PE, CHF, pneumonia Critical Care Time: No Critical care attestation.: If time is entered above; I have spent that time in minutes in the direct care of this critically ill patient, excluding procedure time. ED Disposition Clinical Impression: Acute chest pain, Bronchospasm Disposition: OP ADMIT IP TO THIS HOSP Is pt being admited?: Yes Condition: Fair Time of Disposition: 10:20
--- NOTE | 2018-10-01 08:58 | XRay Report ---
PROCEDURE: XR CHEST 1V AP TECHNIQUE: Chest radiograph single view. HISTORY: Chest Pain COMPARISONS: 03/11/2017 . FINDINGS: No mediastinal shift. Cardiac silhouette is not enlarged. Linear bibasilar atelectasis/scarring. No p neumothorax, definite effusion, or focal airspace disease identified. No acute skeletal findings. IMPRESSION: No acute pulmonary finding identified. This document is electronically signed by Magdaleno Powers MD., October 01 2018 08:55:59 AM ET
--- NOTE | 2018-10-01 11:03 | Cat Scan Report ---
CTA CHEST: HISTORY: chest pain. COMPARISON: none. TECHNIQUE: Helical CT in 1.25mm intervals following IV contrast. Pulmonary embolus protocol. Sagittal and coronal reformatted images. Rotational MIP images. FINDINGS: Contrast bolus is satisfactory. No pulmonary embolus is identified. Thyroid gland: Normal. Tracheobronchial tree: Normal. Esophagus: Normal. Heart: Normal. Pericardium: Normal. Mediastinum: Normal. Lung Dinero: Minor segmental atelectasis is identified in the middle lobe, right lower lobe and lingula. No evidence for pneumonia or mass. Pleural Spaces: Normal. Musculoskeletal: Osteopenia. Healing non-displaced left anterior third and fourth rib fractures are identified. IMPRESSION: No evidence for pulmonary embolus. Mild bilateral atelectatic changes. Healing left anterior third and fourth rib fractures.
[2018-10-01] MEDS ORDERED: TYLENOL PO PRN (12:03)
[2018-10-01] MEDS ORDERED: ZOFRAN IV PRN (12:03)
[2018-10-01] MEDS ORDERED: SODIUM CHLORIDE FLUSH SYRINGE 10 ML IV PRN ×2 (12:03)
--- NOTE | 2018-10-01 12:03 | History and Physical Report ---
History of Present Illness Date of examination: 10/01/18 Date of admission: 10/01/18 09:57 Chief complaint: cp History of present illness: 73-year-old female with past medical history of asthma and hypercholesterolemia presents to the emergency department with a complaint of a few weeks of some intermittent chest tightness and heaviness and shortness of breath. Patient feels that there are some gas pains in the upper chest. She denies any tobacco or illicit drug use. She was seen her primary care physician recently, Dr. Rios, to increase her use of her albuterol inhaler or nebulizer treatments but this has not improved her symptoms. No recent travel or sick contacts at home. Patient does not speak much Spanish so her daughter is currently at bedside during translation. No reports of fever chills. No cough or cold-like symptoms. No headache or visual disturbance. Past History Past Medical History: hyperlipidemia, other (asthma) Past Surgical History: No surgical history Social history: no significant social history Family history: no significant family history Medications and Allergies Allergies Allergy/AdvReac Type Severity Reaction Status Date / Time No Known Allergies Allergy Verified 03/28/17 20:58 Home Medications Medication Instructions Recorded Confirmed Last Taken Type Budesoni/Formotero 160-4.5(Nf) 2 puff IH BID 05/30/16 05/30/16 05/30/16 History [Symbicort 160-4.5 (Nf)] Fesoterodine Fumarate [Toviaz] 4 mg PO QDAY 05/30/16 05/30/16 05/30/16 History Lansoprazole 30 mg PO DAILY 05/30/16 05/30/16 05/30/16 History Oxybutynin [Ditropan] 5 mg PO DAILY 05/30/16 05/30/16 05/30/16 History Fluconazole [Diflucan TAB] 200 mg PO QDAY #14 tablet 02/22/17 Unknown Rx Docusate Sodium [Colace] 100 mg PO BID PRN #60 capsule 03/29/17 Unknown Rx Lactulose 10 gm PO DAILY PRN #150 ml 03/29/17 Unknown Rx Sodium Phosphate,[place]-Dibasic 118 ml RC ONCE #1 enema 03/29/17 Unknown Rx [Fleet Enema] Amoxicillin/Potassium Clav 1 each PO BID #14 tablet 11/21/17 Unknown Rx [Augmentin 875-125 Tablet] Ondansetron [Zofran Odt] 4 mg PO Q8HR PRN #14 tab.rapdis 11/21/17 Unknown Rx oxyCODONE /ACETAMINOPHEN [Percocet 1 tab PO Q6HR PRN #14 tablet 11/21/17 Unknown Rx 5/325] Review of Systems All systems: negative Exam - Constitutional Vitals: Temp Pulse Resp BP Pulse Ox 98.2 F 74 16 120/71 99 10/01/18 11:30 10/01/18 11:30 10/01/18 11:30 10/01/18 11:30 10/01/18 11:30 General appearance: Present: no acute distress, well-nourished - EENT Eyes: Present: PERRL ENT: hearing intact, clear oral mucosa - Neck Neck: Present: supple, normal ROM - Respiratory Respiratory effort: normal Respiratory: bilateral: CTA - Cardiovascular Heart Sounds: Present: S1 & S2. Absent: rub, click - Extremities Extremities: pulses symmetrical, No edema Peripheral Pulses: within normal limits - Abdominal General gastrointestinal: Present: soft, non-tender, non-distended, normal bowel sounds Female genitourinary: Present: normal - Integumentary Integumentary: Present: clear, warm, dry - Musculoskeletal Musculoskeletal: gait normal, strength equal bilaterally - Psychiatric Psychiatric: appropriate mood/affect, intact judgment & insight - Neurologic Neurologic: CNII-XII intact, moves all extremities Results - Labs CBC & Chem 7: 10/01/18 05:22 10/01/18 05:22 Labs: Laboratory Last Values WBC 6.8 K/mm3 (4.5-11.0) 10/01/18 05:22 RBC 4.38 M/mm3 (3.65-5.03) 10/01/18 05:22 Hgb 14.0 gm/dl (10.1-14.3) 10/01/18 05:22 Hct 41.2 % (30.3-42.9) 10/01/18 05:22 MCV 94 fl (79-97) 10/01/18 05:22 MCH 32 pg (28-32) 10/01/18 05:22 MCHC 34 % (30-34) 10/01/18 05:22 RDW 12.9 % (13.2-15.2) L 10/01/18 05:22 Plt Count 246 K/mm3 (140-440) 10/01/18 05:22 Lymph % (Auto) 26.1 % (13.4-35.0) 10/01/18 05:22 [place] % (Auto) 9.1 % (0.0-7.3) H 10/01/18 05:22 Eos % (Auto) 5.2 % (0.0-4.3) H 10/01/18 05:22 Baso % (Auto) 1.3 % (0.0-1.8) 10/01/18 05:22 Lymph # 1.8 K/mm3 (1.2-5.4) 10/01/18 05:22 [place] # 0.6 K/mm3 (0.0-0.8) 10/01/18 05:22 Eos # 0.3 K/mm3 (0.0-0.4) 10/01/18 05:22 Baso # 0.1 K/mm3 (0.0-0.1) 10/01/18 05:22 Seg Neutrophils % 58.3 % (40.0-70.0) 10/01/18 05:22 Seg Neutrophils # 4.0 K/mm3 (1.8-7.7) 10/01/18 05:22 281.03 ng/mlDDU (0-234) H 10/01/18 08:50 Sodium 143 mmol/L (137-145) 10/01/18 05:22 Potassium 4.0 mmol/L (3.6-5.0) 10/01/18 05:22 Chloride 107.3 mmol/L (98-107) H 10/01/18 05:22 Carbon Dioxide 23 mmol/L (22-30) 10/01/18 05:22 17 mmol/L 10/01/18 05:22 BUN 15 mg/dL (7-17) 10/01/18 05:22 0.5 mg/dL (0.7-1.2) L 10/01/18 05:22 Estimated GFR > 60 ml/min 10/01/18 05:22 30 % 10/01/18 05:22 Glucose 99 mg/dL (65-100) 10/01/18 05:22 Calcium 9.1 mg/dL (8.4-10.2) 10/01/18 05:22 < 0.010 ng/mL (0.00-0.029) 10/01/18 11:18 Assessment and Plan Assessment and plan: Chest pain. Patient will replace some chest pain pathway. Follow-up serial cardiac isoenzymes and EKG. Lexiscan in a.m. Acute Asthma exacerbation. Continue asthma pathway. Systemic steroids, bronchodilators/nebulizer treatments. Empiric antibiotics. Hyperlipidemia. Continue statins.
[2018-10-01 13:22] LABS: Basophils # (Auto) 0.1 K/mm3 (0.0-0.1); Basophils % (Auto) 1.1 % (0.0-1.8); Eosinophils % (Auto) 0.1 % (0.0-4.3); Hematocrit 44.6 % (30.3-42.9); Hemoglobin 15.1 gm/dl (10.1-14.3); Lymphocytes # (Auto) 0.8 K/mm3 (1.2-5.4); Lymphocytes % (Auto) 15.3 % (13.4-35.0); Mean Corpuscular HGB Conc 34 % (30-34); Mean Corpuscular Volume 94 fl (79-97); Monocytes # (Auto) 0.1 K/mm3 (0.0-0.8); Monocytes % (Auto) 0.9 % (0.0-7.3); Platelet Count 258 K/mm3 (140-440); Red Blood Count 4.75 M/mm3 (3.65-5.03); Red Cell Distribution Width 12.8 % (13.2-15.2)
[2018-10-01 13:45] LABS: BUN/Creatinine Ratio 28; Blood Urea Nitrogen 11 mg/dL (7-17); Calcium 8.7 mg/dL (8.4-10.2); Hemolysis Index 8
--- NOTE | 2018-10-01 14:28 | Consultation ---
History of Present Illness Consult date: 10/01/18 Requesting physician: NUBIA LEVY Consult reason: chest pain History of present illness: The pt is a 73 YO female with a past medical history of asthma, arthritis and HLP. Pt does not speak [place] and thus HPI is obtained with the help of her daughter who is translating at bedside. She presented to the emergency department with a complaint of a few weeks of some intermittent chest tightness and heaviness and shortness of breath. Pt states her discomfort is mostly present when coughing. She was seen her primary care physician recently, Dr. Rios, to increase her use of her albuterol inhaler or nebulizer treatments but this has not helped. ECG with NAF, Reji negative for AMI. CXR with NAF, chest CTA negative for PE. Past History Past Medical History: hyperlipidemia, other (asthma) Past Surgical History: No surgical history Social history: no significant social history Family history: no significant family history Medications and Allergies Allergies Allergy/AdvReac Type Severity Reaction Status Date / Time No Known Allergies Allergy Verified 03/28/17 20:58 Home Medications Medication Instructions Recorded Confirmed Last Taken Type Budesoni/Formotero 160-4.5(Nf) 2 puff IH BID 05/30/16 10/01/18 05/30/16 History [Symbicort 160-4.5 (Nf)] Fesoterodine Fumarate [Toviaz] 4 mg PO QDAY 05/30/16 10/01/18 05/30/16 History Lansoprazole 30 mg PO DAILY 05/30/16 10/01/18 05/30/16 History Oxybutynin [Ditropan] 5 mg PO DAILY 05/30/16 10/01/18 05/30/16 History Fluconazole [Diflucan TAB] 200 mg PO QDAY #14 tablet 02/22/17 10/01/18 Unknown Rx Docusate Sodium [Colace] 100 mg PO BID PRN #60 capsule 03/29/17 10/01/18 Unknown Rx Lactulose 10 gm PO DAILY PRN #150 ml 03/29/17 10/01/18 Unknown Rx Amoxicillin/Potassium Clav 1 each PO BID #14 tablet 11/21/17 10/01/18 Unknown Rx [Augmentin 875-125 Tablet] Ondansetron [Zofran Odt] 4 mg PO Q8HR PRN #14 tab.rapdis 11/21/17 10/01/18 Un known Rx oxyCODONE /ACETAMINOPHEN [Percocet 1 tab PO Q6HR PRN #14 tablet 11/21/17 10/01/18 Unknown Rx 5/325] Sodium Phosphate,[place]-Dibasic 188 ml RC ONCE 10/01/18 10/01/18 Unknown History [Fleet Enema] Active Meds: Active Medications Acetaminophen (Tylenol) 650 mg PO Q4H PRN PRN Reason: Pain MILD(1-3)/Fever >100.5/HULL Albuterol/Ipratropium (Duoneb *Not For Prn Use*) 1 ampul IH Q6HRT JEANMARIE Ceftriaxone Sodium (Rocephin/Ns 1 Gm/50 Ml) 1 gm in 50 mls @ 100 mls/hr IV Q24HR JEANMARIE; Protocol Methylprednisolone Sodium Succinate (Solu-Medrol) 40 mg IV Q8HR JEANMARIE Ondansetron HCl (Zofran) 4 mg IV Q8H PRN PRN Reason: Nausea And Vomiting Sodium Chloride (Sodium Chloride Flush Syringe 10 Ml) 10 ml IV BID JEANMARIE Sodium Chloride (Sodium Chloride Flush Syringe 10 Ml) 10 ml IV PRN PRN PRN Reason: LINE FLUSH Review of Systems Constitutional: no weight loss, no weight gain, no fever, no chills, no sweats Ears, nose, mouth and throat: no ear pain, no nose pain, no sinus pressure, no sinus pain Cardiovascular: chest pain, shortness of breath, dyspnea on exertion, no or thopnea, no palpitations, no rapid/irregular heart beat, no edema, no syncope, no lightheadedness Respiratory: cough, shortness of breath, dyspnea on exertion, wheezing, pain (with coughing) Gastrointestinal: no abdominal pain, no nausea, no vomiting, no diarrhea, no constipation Genitourinary Female: no pelvic pain, no flank pain, no dysuria, no urinary frequency, no urgency Musculoskeletal: no neck stiffness, no neck pain, no shooting arm pain, no arm numbness/tingling, no low back pain, no shooting leg pain Integumentary: no rash, no pruritis, no redness, no sores, no wounds Neurological: no head injury, no paralysis, no weakness, no parathesias, no numbness, no tingling, no seizures, no syncope Psychiatric: no anxiety Endocrine: no cold intolerance, no heat intolerance Hematologic/Lymphatic: no easy bruising, no easy bleeding Allergic/Immunologic: no urticaria Physical Examination Vital Signs Temp Pulse Resp BP Pulse Ox 98.2 F 69 18 135/81 96 10/01/18 05:03 10/01/18 05:03 10/01/18 05:03 10/01/18 05:03 10/01/18 05:03 General appearance: no acute distress HEENT: Positive: PERRL, Normocephaly, Mucus Membranes Moist Neck: Positive: neck supple, trachea midline Cardiac: Positive: Reg Rate and Rhythm, S1/S2 Lungs: Positive: Decreased Breath Sounds Neuro: Positive: Grossly Intact Abdomen: Negative: Tender Skin: Negative: Rash Musculoskeletal: No Pain Extremities: Absent: edema Results 10/01/18 12:56 10/01/18 12:56 CBC 10/01/18 10/01/18 Range/Units 05:22 12:56 WBC 6.8 5.4 (4.5-11.0) K/mm3 RBC 4.38 4.75 (3.65-5.03) M/mm3 Hgb 14.0 15.1 H (10.1-14.3) gm/dl Hct 41.2 44.6 H (30.3-42.9) % Plt Count 246 258 (140-440) K/mm3 Lymph # 1.8 0.8 L (1.2-5.4) K/mm3 [place] # 0.6 0.1 (0.0-0.8) K/mm3 Eos # 0.3 0.0 (0.0-0.4) K/mm3 Baso # 0.1 0.1 (0.0-0.1) K/mm3 Comprehensive Metabolic Panel 10/01/18 10/01/18 Range/Units 05:22 12:56 Sodium 143 140 (137-145) mmol/L Potassium 4.0 3.8 (3.6-5.0) mmol/L Chloride 107.3 H 105.0 (98-107) mmol/L Carbon Dioxide 23 22 (22-30) mmol/L BUN 15 11 (7-17) mg/dL Creatinine 0.5 L 0.4 L (0.7-1.2) mg/dL Glucose 99 141 H (65-100) mg/dL Calcium 9.1 8.7 (8.4-10.2) mg/dL - Imaging and Cardiology Echo: pending EKG: report reviewed, image reviewed EKG interpretations - Telemetry EKG Rhythm: Sinus Rhythm - EKG Sinus rhythms and dysrhythmias: sinus rhythm Assessment and Plan Chest pain currently appears pleuritic. AMI ruled out. Will plan to proceed with lexiscan MPI stress test in AM and obtain echo. NPO after MN. The patient has been seen in conjunction with Dr. Ryan Miller who agrees with the assessment and plan of care. - Patient Problems (1) Chest pain Current Visit: Yes Status: Acute (2) Asthma Current Visit: Yes Status: Chronic (3) Hyperlipidemia Current Visit: Yes Status: Chronic
[2018-10-01] MEDS: DUONEB *Not for PRN Use IH SCH ×2 (14:40→20:05)
[2018-10-01] MEDS: SOLU-Medrol IV SCH ×2 (14:40→23:09)
[2018-10-01] MEDS: ROBITUSSIN PO PRN (23:09)
[2018-10-01] MEDS: SODIUM CHLORIDE FLUSH SYRINGE 10 ML IV SCH (23:09)
[2018-10-02] MEDS: DUONEB *Not for PRN Use IH SCH ×4 (01:48→19:48)
[2018-10-02] MEDS: SOLU-Medrol IV SCH ×3 (05:26→22:25)
[2018-10-02] MEDS ORDERED: LEXISCAN IV ONE ×2 (08:28→09:02)
[2018-10-02] MEDS: ROCEPHIN/NS 1 GM/50 ML 1 GM/50 ML BAG IV SCH (10:48)
[2018-10-02] MEDS: SODIUM CHLORIDE FLUSH SYRINGE 10 ML IV SCH ×2 (10:49→22:24)
--- NOTE | 2018-10-02 14:53 | Progress Note ---
Assessment and Plan S/p lexiscan MPI stress test today which was negative. TTE reviewed. Currently stable cardiac status. Pt may discharge home from cardiology standpoint. Recommend pt follow up in our office with Dr. Ryan Miller within 1-2 weeks of hospital discharge ([phone]). The patient has been seen in conjunction with Dr. Ryan Miller who agrees with the assessment and plan of care. - Patient Problems (1) Chest pain Current Visit: Yes Status: Resolved (2) Asthma Current Visit: Yes Status: Chronic (3) Hyperlipidemia Current Visit: Yes Status: Chronic Subjective Date of service: 10/02/18 Principal diagnosis: cp Interval history: pt for stress test. no current complaints. Objective Last Vital Signs Temp 98.3 F 10/02/18 03:44 Pulse 80 10/02/18 14:22 Resp 18 10/02/18 14:22 BP 111/66 10/02/18 09:13 Pulse Ox 90 10/02/18 03:44 - Physical Examination General: No Apparent Distress HEENT: Positive: PERRL, Normocephaly, Mucus Membranes Moist Neck: Positive: neck supple, trachea midline Cardiac: Positive: Reg Rate and Rhythm, S1/S2 Lungs: Positive: Decreased Breath Sounds Neuro: Positive: Grossly Intact Abdomen: Negative: Tender Skin: Negative: Rash Musculoskeletal: No Pain Extremities: Absent: edema - Imaging and Cardiology EKG: report reviewed, image reviewed Echo: pending - EKG Sinus rhythms and dysrhythmias: sinus rhythm
--- NOTE | 2018-10-02 17:17 | Treadmill Report ---
NUCLEAR PERFUSION SCAN REFERRING PHYSICIAN: Buck Gipson MD PROTOCOL: The patient was brought to the stress lab in postabsorptive state, given 10 mCi of technetium 99m. The patient underwent rest imaging. The patient underwent a stress test with nuclear perfusion with 10 mCi of technetium 99m. The patient underwent Lexiscan stress test per standard protocol. At peak stress, the patient was given 26 mCi of technetium 99m. Shortly thereafter, the patient underwent stress imaging. INTERPRETATION: 1. Normal homogenous uptake of radioisotope in all reported segments. No evidence of significant fixed or reversible perfusion defects suggestive of prior infarction or ischemia. Gated wall motion reveals normal systolic thickening, calculated ejection fraction of 80%. No TID. CONCLUSIONS: 1. Normal myocardial perfusion scan without evidence of active ischemia or prior infarction. 2. Normal left ventricular systolic performance without evidence of transient ischemic dilatation or stress-induced segmental wall motion abnormalities. JOB# [id number] [facility]/OCTAVIO
--- NOTE | 2018-10-02 17:31 | Progress Note ---
Assessment and Plan Assessment and plan: --Chest pain. Mild improvement of symptoms ,Follow-up serial cardiac isoenzymes and EKG. Lexiscan negative for reversible ischemia --Noncardiac chest pain/due to GERD; Protonix --Acute Asthma exacerbation: Mild improvement Continuous to have bilateral decreased, oxygen titrated O2 sats more than 90%, tapering steroids, nebs Empiric antibiotics, cough medicine, supportive care-- --Hyperlipidemia. Continue statins. --Obesity; BMI 30.2, advised weight reduction and medically stable --DVT prophylaxis; Lovenox Monitor the patient closely and adjust management as needed Possible discharge tomorrow if stable History Interval history: Communicated through a bilingual family member Patient seen and examined medical records reviewed/ No new events reported by the nursing Vital signs noted Underwent stress test pending report Continues to have wheeze and congestion Hospitalist Physical - Constitutional Vitals: Temp Pulse Resp BP Pulse Ox 98.3 F 80 18 111/66 95 10/02/18 03:44 10/02/18 14:22 10/02/18 14:22 10/02/18 09:13 10/02/18 11:00 General appearance: Present: no acute distress, well-nourished, obese - EENT Eyes: Present: PERRL, EOM intact - Neck Neck: Present: supple, normal ROM - Respiratory Respiratory effort: normal Respiratory: bilateral: diminished, wheezing, negative: rales, rhonchi - Cardiovascular Rhythm: regular Heart Sounds: Present: S1 & S2 - Extremities Extremities: no ischemia, No edema - Abdominal General gastrointestinal: soft, non-tender, non-distended, normal bowel sounds - Integumentary Integumentary: Present: clear, warm - Psychiatric Psychiatric: appropriate mood/affect, cooperative - Neurologic Neurologic: CNII-XII intact, moves all extremities Results - Labs CBC & Chem 7: 10/01/18 12:56 10/01/18 12:56 Labs: Laboratory Last Values WBC 5.4 K/mm3 (4.5-11.0) 10/01/18 12:56 RBC 4.75 M/mm3 (3.65-5.03) 10/01/18 12:56 Hgb 15.1 gm/dl (10.1-14.3) H 10/01/18 12:56 Hct 44.6 % (30.3-42.9) H 10/01/18 12:56 MCV 94 fl (79-97) 10/01/18 12:56 MCH 32 pg (28-32) 10/01/18 12:56 MCHC 34 % (30-34) 10/01/18 12:56 RDW 12.8 % (13.2-15.2) L 10/01/18 12:56 Plt Count 258 K/mm3 (140-440) 10/01/18 12:56 Lymph % (Auto) 15.3 % (13.4-35.0) 10/01/18 12:56 [place] % (Auto) 0.9 % (0.0-7.3) 10/01/18 12:56 Eos % (Auto) 0.1 % (0.0-4.3) 10/01/18 12:56 Baso % (Auto) 1.1 % (0.0-1.8) 10/01/18 12:56 Lymph # 0.8 K/mm3 (1.2-5.4) L 10/01/18 12:56 [place] # 0.1 K/mm3 (0.0-0.8) 10/01/18 12:56 Eos # 0.0 K/mm3 (0.0-0.4) 10/01/18 12:56 Baso # 0.1 K/mm3 (0.0-0.1) 10/01/18 12:56 Seg Neutrophils % 82.6 % (40.0-70.0) H 10/01/18 12:56 Seg Neutrophils # 4.5 K/mm3 (1.8-7.7) 10/01/18 12:56 281.03 ng/mlDDU (0-234) H 10/01/18 08:50 Sodium 140 mmol/L (137-145) 10/01/18 12:56 Potassium 3.8 mmol/L (3.6-5.0) 10/01/18 12:56 Chloride 105.0 mmol/L (98-107) 10/01/18 12:56 Carbon Dioxide 22 mmol/L (22-30) 10/01/18 12:56 17 mmol/L 10/01/18 12:56 BUN 11 mg/dL (7-17) 10/01/18 12:56 0.4 mg/dL (0.7-1.2) L 10/01/18 12:56 Estimated GFR > 60 ml/min 10/01/18 12:56 28 % 10/01/18 12:56 Glucose 141 mg/dL (65-100) H 10/01/18 12:56 Calcium 8.7 mg/dL (8.4-10.2) 10/01/18 12:56 < 0.010 ng/mL (0.00-0.029) 10/01/18 11:18 Active Medications - Current Medications Current Medications: Generic Name Dose Route Start Last Admin Trade Name Freq PRN Reason Stop Dose Admin Acetaminophen 650 mg 10/01/18 12:03 Tylenol PO Q4H PRN Pain MILD(1-3)/Fever >100.5/HULL Albuterol/Ipratropium 1 ampul 10/01/18 14:00 10/02/18 14:03 Duoneb *Not For Prn Use* IH 1 ampul Q6HRT JEANMARIE Administration Guaifenesin 200 mg 10/01/18 22:42 10/01/18 23:09 Robitussin PO 200 mg Q4H PRN Administration Cough Ceftriaxone Sodium 1 gm in 50 mls @ 100 mls/hr 10/02/18 10:00 10/02/18 10:48 Rocephin/Ns 1 Gm/50 Ml IV 100 mls/hr Q24HR JEANMARIE Administration Protocol Methylprednisolone Sodium Succinate 40 mg 10/01/18 14:00 10/02/18 14:25 Solu-Medrol IV 40 mg Q8HR JEANMARIE Administration Ondansetron HCl 4 mg 10/01/18 12:03 Zofran IV Q8H PRN Nausea And Vomiting Sodium Chloride 10 ml 10/01/18 22:00 10/02/18 10:49 Sodium Chloride Flush Syringe 10 Ml IV 10 ml BID JEANMARIE Administration Sodium Chloride 10 ml 10/01/18 12:03 Sodium Chloride Flush Syringe 10 Ml IV PRN PRN LINE FLUSH
[2018-10-02] MEDS ORDERED: CHLORASEPTIC MM PRN (20:57)
[2018-10-02] MEDS: ROBITUSSIN PO PRN (22:25)
[2018-10-03] MEDS: DUONEB *Not for PRN Use IH SCH ×3 (04:00→13:17)
[2018-10-03] MEDS: SOLU-Medrol IV SCH ×2 (05:27→13:27)
[2018-10-03] MEDS: ROBITUSSIN PO PRN (07:36)
[2018-10-03] MEDS: SODIUM CHLORIDE FLUSH SYRINGE 10 ML IV SCH (09:11)
[2018-10-03] MEDS: ROCEPHIN/NS 1 GM/50 ML 1 GM/50 ML BAG IV SCH (09:11)
--- NOTE | 2018-10-03 11:13 | Discharge Summary ---
Providers - Providers Date of Admission: 10/01/18 09:57 Date of discharge: 10/03/18 Attending physician: CONG DUBOIS 10/01/18 Consult to Cardiac Rehabilitation [CONS] Routine Reason For Exam: Phase I 10/01/18 12:03 Consult to Cardiology [CONS] Routine Consulting Provider: MAGGIE MORENO Reason For Exam: cp 10/03/18 08:58 Physical Therapy Evaluation and Treat [CONS] Routine Comment: Reason For Exam: Weakness Primary care physician: RENÉ POPE Hospitalization Reason for admission: chest pain Condition: Fair Pertinent studies: CTA chest; no evidence of PE, bilateral atelectasis, healing fractures of the ribs Stress test; negative for reversible ischemia, ejection fraction 80% Chest x-ray no acute abnormality Echocardiogram; EF 55-60%, impaired relaxation, abnormal left ventricular filling Hospital course: 73-year-old female with past medical history of asthma and hypercholesterolemia presents to the emergency department with a complaint of a few weeks of some intermittent chest tightness and heaviness and shortness of breath. Patient was admitted symptomatically managed evaluated by cardiology She underwent stress test which was negative for reversible ischemia and normal ejection fraction CTA chest negative for PE, Echocardiogram reviewed Today patient is comfortable no new complaints vital signs stable physical examination is unremarkable Patient is hemodynamically and clinically stable at discharge Discharge diagnosis; --Chest pain. Mild improvement of symptoms ,Follow-up serial cardiac isoenzymes and EKG. Lexiscan negative for reversible ischemia --Noncardiac chest pain/due to GERD; Protonix --Acute Asthma exacerbation: Mild improvement Continuous to have bilateral decreased, oxygen titrated O2 sats more than 90%, tapering steroids, nebs Empiric antibiotics, cough medicine, supportive care-- --Hyperlipidemia. Continue statins. --Obesity; BMI 30.2, advised weight reduction and medically stable --DVT prophylaxis; Lovenox Stable at Discharge Disposition: DC-01 TO HOME OR SELFCARE Time spent for discharge: 32 min Core Measure Documentation - Palliative Care Palliative Care/ Comfort Measures: Not Applicable - Core Measures Any of the following diagnoses?: none Exam - Constitutional Vitals: Temp Pulse Resp BP Pulse Ox 97.5 F L 72 18 134/77 96 10/03/18 07:27 10/03/18 09:48 10/03/18 07:38 10/03/18 07:27 06/19/19 09:48 General appearance: Present: no acute distress, well-nourished - EENT Eyes: Present: PERRL, EOM intact - Neck Neck: Present: supple, normal ROM - Respiratory Respiratory effort: normal Respiratory: bilateral: diminished, negative: rales, rhonchi, wheezing - Cardiovascular Rhythm: regular Heart Sounds: Present: S1 & S2 - Extremities Extremities: no ischemia, No edema - Abdominal General gastrointestinal: Present: soft, non-tender, non-distended, normal bowel sounds - Integumentary Integumentary: Present: clear, warm Plan Activity: advance as tolerated, fall precautions Diet: other (cardiac diet) Additional Instructions: If you have shortness of breath or chest pain contact M.D. or go to the emergency room Follow up with: RENÉ POPE MD [Primary Care Provider] - 3-5 Days MAGGIE MORENO MD [Staff Physician] - 7 Days SHELLY WERNER MD [Staff Physician] - 7 Days Prescriptions: levoFLOXacin [Levaquin] 750 mg PO QDAY #5 tablet Prednisone [predniSONE 10 mg (6-Day Pack, 21 Tabs)] 10 mg PO .TAPER #1 tab.ds.pk ALBUTEROL Inhaler (OR & NICU) [ProAir HFA Inhaler] 2 puff IH QID PRN #1 inhalation PRN Reason: Shortness Of Breath guaiFENesin [Robitussin] 200 mg PO Q4H PRN 10 Days oral.liqd PRN Reason: Cough
[2018-10-03 13:31] VITALS: BP 129/72
== END 2018-10-03 15:30 | disposition home or self-care (01) ==
LOC: ED 05:01 → 4A 09:57 → 2B-ACE 10-02 22:07
PROVIDERS: ADMIT Hospitalist; ATTEND Internal Medicine
DX: R07.89 Other chest pain (principal); J45.901 Unspecified asthma with (acute) exacerbation; E78.5 Hyperlipidemia, unspecified; E78.00 Pure hypercholesterolemia, unspecified; E66.9 Obesity, unspecified; M19.90 Unspecified osteoarthritis, unspecified site; Z98.890 Other specified postprocedural states; Z90.49 Acquired absence of other specified parts of digestive tract; Z68.30 Body mass index [BMI] 30.0-30.9, adult
CPT/HCPCS: 36415; 71045; 71275; 78452; 80048; 84484; 85025; 85379; 93005; 93010; 93017; 93306; 94640; 96365; 96366; 96375; 96376; 97161; 99284; A9502; G0378; J0696; J2785; J2920; J2930; J7030; Q9967

== ENCOUNTER 2019-10-20 11:53 | Emergency (ER) | payer MEDICARE ==
[2019-10-20 12:00] VITALS: BP 142/84
--- NOTE | 2019-10-20 12:15 | Event Note ---
ED Screening Note Date of service: 10/20/19 Time: 12:14 ED Screening Note: Patient complains of right wrist and hand pain and also right knee and right lower leg pain after a fall today. Patient states she was walking down the stairs and lost her footing on the last stair [place] machine tester needed This initial assessment/diagnostic orders/clinical plan/treatment(s) is/are subject to change based on patients health status, clinical progression and re- assessment by fellow clinical providers in the ED. Further treatment and workup at subsequent clinical providers discretion. Patient/guardian urged not to elope from the ED as their condition may be serious if not clinically assessed and managed. Initial orders include: X-ray
--- NOTE | 2019-10-20 13:36 | XRay Report ---
XR knee 3V RT INDICATION / CLINICAL INFORMATION: pain after fall. COMPARISON: None available. FINDINGS: BONES/JOINT(S): There is a comminuted fracture of the proximal tibia involving both the medial and la teral tibial plateaus with articular surface incongruity in the tibial spine. There is a moderate lesa nt effusion. SOFT TISSUES: There is soft tissue swelling throughout the knee. ADDITIONAL FINDINGS: None. Signer Name: Manuel Mackenzie MD Signed: 10/20/2019 1:32 PM Workstation Name: [id number]
--- NOTE | 2019-10-20 13:37 | XRay Report ---
XR tibia fibula 2V RT INDICATION / CLINICAL INFORMATION: pain after fall. COMPARISON: None available. FINDINGS: BONES/JOINT(S): There is a comminuted fracture of the proximal tibia involving both the medial and la teral tibial plateaus with articular surface incongruity in the tibial spine. There is a moderate lesa nt effusion. There is no other acute fracture in the remainder of the tibia and fibula. SOFT TISSUES: No significant abnormality. ADDITIONAL FINDINGS: None. Signer Name: Manuel Mackenzie MD Signed: 10/20/2019 1:32 PM Workstation Name: [id number]
--- NOTE | 2019-10-20 13:37 | XRay Report ---
XR hand 3+V RT INDICATION / CLINICAL INFORMATION: pain and swelling after fall injury. COMPARISON: None available. FINDINGS: BONES/JOINT(S): There is a mildly displaced fracture of the proximal shaft of the fifth proximal phal anx with mild volar apex angulation. There is no other acute fracture. There is moderate DJD througho ut the interphalangeal joints. SOFT TISSUES: No significant abnormality. ADDITIONAL FINDINGS: None. Signer Name: Manuel Mackenzie MD Signed: 10/20/2019 1:33 PM Workstation Name: [id number]
--- NOTE | 2019-10-20 15:17 | Emergency Department Report ---
ED Fall HPI - General Chief Complaint: Fall Stated Complaint: FALL Time Seen by Provider: 10/20/19 12:12 Source: patient, EMS Mode of arrival: Ambulatory - History of Present Illness Initial Comments: 74-year-old German female presents to the emergency room complaining of right wrist and right knee pain with body aches status post a fall while walking down the stairs at [employer] and missed the last step. Patient has a past medical history of arthritis asthma. Patient was accompanied by Dr. Pepe Connelly chiropractor from her [employer]. He has been translating for patient. MD Complaint: fall -: This morning Fall From: standing When Fall Occurred: 1 hour [employer] Fall Witnessed: yes, by family Place Fall Occurred: other ([facility]) Loss of Consciousness: none Prolonged Down Time?: no Symptoms Prior to Fall: none Location - Extremities: Right: Hand, Knee Severity scale (0 -10): 8 Quality: sharp, aching Context: other (Missed a step) Associated Symptoms: denies - Related Data Home Medications Medication Instructions Recorded Confirmed Last Taken Budesoni/Formotero 160-4.5(Nf) 2 puff IH BID 05/30/16 10/01/18 05/30/16 [Symbicort 160-4.5 (Nf)] Fesoterodine Fumarate [Toviaz] 4 mg PO QDAY 05/30/16 10/01/18 05/30/16 Lansoprazole 30 mg PO DAILY 05/30/16 10/01/18 05/30/16 Oxybutynin [Ditropan] 5 mg PO DAILY 05/30/16 10/01/18 05/30/16 Sodium Phosphate,[place]-Dibasic 188 ml RC ONCE 10/01/18 10/01/18 Unknown [Fleet Enema] Previous Rx's Medication Instructions Recorded Last Taken Type Fluconazole [Diflucan TAB] 200 mg PO QDAY #14 tablet 02/22/17 Unknown Rx Docusate Sodium [Colace CAP] 100 mg PO BID PRN #60 capsule 03/29/17 Unknown Rx Lactulose 10 gm PO DAILY PRN #150 ml 03/29/17 Unknown Rx Ondansetron [Zofran ODT TAB] 4 mg PO Q8HR PRN #14 tab.rapdis 11/21/17 Unknown Rx oxyCODONE /ACETAMINOPHEN [Percocet 1 tab PO Q6HR PRN #14 tablet 11/21/17 Unknown Rx 5/325 mg] Albuterol INH(or & Nicu Only) 2 puff IH QID PRN #1 inhalation 10/03/18 Unknown Rx [ProAir HFA Inhaler] Prednisone [predniSONE 10 mg 10 mg PO .TAPER #1 tab.ds.pk 10/03/18 Unknown Rx (6-Day Pack, 21 Tabs)] guaiFENesin [Robitussin] 200 mg PO Q4H PRN 10 Days 10/03/18 Unknown Rx oral.liqd levoFLOXacin [Levaquin] 750 mg PO QDAY #5 tablet 10/03/18 Unknown Rx Acetaminophen/Codeine [Tylenol 1 tab PO Q4HR PRN #18 tablet 10/20/19 Unknown Rx /Codeine # 3 tab] Allergies Allergy/AdvReac Type Severity Reaction Status Date / Time No Known Allergies Allergy Verified 03/28/17 20:58 ED Review of Systems ROS: Stated complaint: FALL Other details as noted in HPI Comment: All other systems reviewed and negative ED Past Medical Hx - Past Medical History Previous Medical History?: Yes Hx Arthritis: Yes Hx Asthma: Yes Additional medical history: bladder pain, face lift,arthritis,asthma,cystoscopy,bladder tact, bronchitis - Surgical History Past Surgical History?: Yes Hx Cholecystectomy: Yes Additional Surgical History: Cystoscopy, Bladder tact, Facelift 01/2017 - Social History Smoking Status: Never Smoker Substance Use Type: None - Medications Home Medications: Home Medications Medication Instructions Recorded Confirmed Last Taken Type Budesoni/Formotero 160-4.5(Nf) 2 puff IH BID 05/30/16 10/01/18 05/30/16 History [Symbicort 160-4.5 (Nf)] Fesoterodine Fumarate [Toviaz] 4 mg PO QDAY 05/30/16 10/01/18 05/30/16 History Lansoprazole 30 mg PO DAILY 05/30/16 10/01/18 05/30/16 History Oxybutynin [Ditropan] 5 mg PO DAILY 05/30/16 10/01/18 05/30/16 History Fluconazole [Diflucan TAB] 200 mg PO QDAY #14 tablet 02/22/17 10/01/18 Unknown Rx Docusate Sodium [Colace CAP] 100 mg PO BID PRN #60 capsule 03/29/17 10/01/18 Unknown Rx Lactulose 10 gm PO DAILY PRN #150 ml 03/29/17 10/01/18 Unknown Rx Ondansetron [Zofran ODT TAB] 4 mg PO Q8HR PRN #14 tab.rapdis 11/21/17 10/01/18 Unknown Rx oxyCODONE /ACETAMINOPHEN [Percocet 1 tab PO Q6HR PRN #14 tablet 11/21/1710/01 Unknown Rx 5/325 mg] Sodium Phosphate,Oktibbeha-Dibasic 188 ml RC ONCE 10/01/18 10/01/18 Unknown History [Fleet Enema] Albuterol INH(or & Nicu Only) 2 puff IH QID PRN #1 inhalation 10/03/18 Unknown Rx [ProAir HFA Inhaler] Prednisone [predniSONE 10 mg 10 mg PO .TAPER #1 tab.ds.pk 10/03/18 Unknown Rx (6-Day Pack, 21 Tabs)] guaiFENesin [Robitussin] 200 mg PO Q4H PRN 10 Days 10/03/18 Unknown Rx oral.liqd levoFLOXacin [Levaquin] 750 mg PO QDAY #5 tablet 10/03/18 Unknown Rx Acetaminophen/Codeine [Tylenol 1 tab PO Q4HR PRN #18 tablet 10/20/19 Unknown Rx /Codeine # 3 tab] ED Physical Exam - General Limitations: No Limitations General appearance: alert, in distress - Head Head exam: Present: atraumatic, normocephalic - Eye Eye exam: Present: normal appearance - ENT ENT exam: Present: normal exam, mucous membranes moist - Neck Neck exam: Present: full ROM - GI/Abdominal GI/Abdominal exam: Present: soft. Absent: distended, tenderness - Expanded Upper Extremity Exam Right Shoulder Exam: Present: normal inspection, full ROM Upper Arm exam: Present: normal inspection, full ROM Elbow exam: Present: normal inspection, full ROM Forearm Wrist exam: Present: normal inspection, full ROM Hand Wrist exam: Present: full ROM, tenderness, swelling, ecchymosis Vascular: Present: normal capillary refill - Expanded Lower Extremity Exam Right Hip exam: Present: full ROM Upper Leg exam: Present: normal inspection Knee exam: Present: tenderness, swelling, effusion Lower Leg exam: Present: normal inspection, full ROM. Absent: tenderness Ankle exam: Present: normal inspection, full ROM. Absent: tenderness Foot/Toe exam: Present: normal inspection, full ROM. Absent: tenderness Neuro vascular tendon exam: Present: no vascular compromise Gait: Positive: observed and limited by pain - Back Exam Back exam: Present: normal inspection - Neurological Exam Neurological exam: Present: alert, oriented X3 - Psychiatric Psychiatric exam: Present: normal affect, normal mood - Skin Skin exam: Present: warm, dry, intact, normal color. Absent: rash ED Course Vital Signs 10/20/19 11:57 Temperature 99 F Pulse Rate 111 H Blood Pressure 142/84 O2 Sat by Pulse 18 L Oximetry ED Medical Decision Making - Radiology Data Radiology results: report reviewed Referring Physician:CHANDAN ELLINGTONPatient Name:RAFAELA LITTLEPatient ID:[id number] of :1729-29-23Cvw:FemaleAccession:[id number] Date:[id number] Status:[place] [address] XRay Report Signed Patient: RAFAELA LITTLE MR#: [id number] : 1945 Acct:[id number] Age/Sex: 74 / F ADM Date: 10/20/19 Loc: ED Attending Dr: Ordering Physician: CHANDAN ELLINGTON Date of Service: 10/20/19 Procedure(s): XR hand 3+V RT Accession Number(s): [id number] cc: CHANDAN ELLINGTON Fluoro Time In Minutes: XR hand 3+V RT INDICATION / CLINICAL INFORMATION: pain and swelling after fall injury. COMPARISON: None available. FINDINGS: BONES/JOINT(S): There is a mildly displaced fracture of the proximal shaft of the fifth proximal phalanx with mild volar apex angulation. There is no other acute fracture. There is moderate DJD throughout the interphalangeal joints. SOFT TISSUES: No significant abnormality. ADDITIONAL FINDINGS: None. Signer Name: Manuel Mackenzie MD Signed: 10/20/2019 1:33 PM Workstation Name: [id number] Transcribed By: LISSY Dictated By: Manuel Mackenzie MD Electronically Authenticated By: Manuel Mackenzie MD Signed Date/Time: 10/20/19 1333 DD/ 133 TD/TT: Right tibial plateau fracture of the knee - Medical Decision Making 74-year-old German female presents to the emergency room complaining of right wrist and right knee pain with body aches status post a fall while walking down the stairs at [employer] and missed the last step. Patient has a past medical history of arthritis asthma. Patient was accompanied by Dr. Pepe Connelly chiropractor from her [employer]. He has been translating for patient. X-ray shows a right tibial plateau fracture x-ray shows right proximal phalangeal fracture Knee immobilizer wrist immobilizer crutches pain medication follow-up with orthopedic. Critical care attestation.: If time is entered above; I have spent that time in minutes in the direct care of this critically ill patient, excluding procedure time. ED Disposition Clinical Impression: Finger fracture, right Qualifiers: Encounter type: initial encounter Finger: ring finger Fracture type: closed Phalanx: proximal Fracture alignment: nondisplaced Qualified Code(s): S62.644A - Nondisplaced fracture of proximal phalanx of right ring finger, initial encounter for closed fracture Tibial plateau fracture, right Qualifiers: Encounter type: initial encounter Fracture type: closed Qualified Code(s): S82.141A - Displaced bicondylar fracture of right tibia, initial encounter for closed fracture Disposition: DC-01 TO HOME OR SELFCARE Is pt being admited?: No Does the pt Need Aspirin: No Condition: Stable Instructions: Leg Fracture (ED), Finger Fracture (ED) Additional Instructions: Please take pain medication as needed. It is very important for you to follow- up with an pharmaceutical sales specialist I have listed to below for your convenience Prescriptions: Acetaminophen/Codeine [Tylenol /Codeine # 3 tab] 1 tab PO Q4HR PRN #18 tablet PRN Reason: Pain Referrals: PRIMARY CARE, [Primary Care Provider] - 3-5 Days KRIS GALEAS MD [Staff Physician] - 3-5 Days LORAINE IRIZARRY MD [Staff Physician] - 3-5 Days
--- NOTE | 2019-10-22 10:10 | XRay Report ---
XR wrist 2V RT INDICATION / CLINICAL INFORMATION: Fell having right wrist pain. COMPARISON: None available. FINDINGS: BONES/JOINT(S): There is a mildly displaced and angulated fracture of the shaft of the fifth proximal phalanx. There is no other acute fracture in the wrist. No significant degenerative changes. SOFT TISSUES: No significant abnormality. ADDITIONAL FINDINGS: None. Signer Name: Manuel Mackenzie MD Signed: 10/20/2019 1:34 PM Workstation Name: [id number]
== END 2019-10-20 15:46 | disposition home or self-care (01) ==
LOC: ED 11:53
DX: S62.614A Displaced fracture of proximal phalanx of right ring finger, initial encounter for closed fracture (principal); S82.141A Displaced bicondylar fracture of right tibia, initial encounter for closed fracture; M19.90 Unspecified osteoarthritis, unspecified site; J45.909 Unspecified asthma, uncomplicated; Z90.49 Acquired absence of other specified parts of digestive tract; Z98.890 Other specified postprocedural states; Z79.899 Other long term (current) drug therapy; W10.8XXA Fall (on) (from) other stairs and steps, initial encounter; Y93.89 Activity, other specified; Y92.89 Other specified places as the place of occurrence of the external cause; Y99.8 Other external cause status
CPT/HCPCS: 99283

== ENCOUNTER 2021-06-28 08:36 | Emergency (ER) | payer MEDICARE ==
[2021-06-28 09:17] VITALS: BP 129/70
--- NOTE | 2021-06-28 09:46 | Emergency Department Report ---
ED Headache HPI - General Chief Complaint: Headache Stated Complaint: HEADACHE Time Seen by Provider: 06/28/21 09:22 - History of Present Illness Initial Comments: This is a very pleasant 76-year-old female presents the emergency department with her daughter with chief complaint of gradual onset headache that has been present for approximately 1 week that starts in the left side of her head and radiates to the neck and upper back. She reports she saw her primary care doctor and was prescribed cyclobenzaprine which has not helped with her symptoms. She denies any recent falls or head injuries. She denies any associated fever, chills, night sweats, dizziness, blurry vision, nausea,, diarrhea, chest pain, shortness of breath, weakness or any other associated symptoms. Allergies/Adverse Reactions: Allergies No Known Allergies Allergy (Verified 03/28/17 20:58) Home Medications: Ambulatory Orders Budesoni/Formotero 160-4.5(Nf) [Symbicort 160-4.5 (Nf)] 2 puff IH BID 05/30/16 Fesoterodine Fumarate [Toviaz] 4 mg PO QDAY 05/30/16 Lansoprazole 30 mg PO DAILY 05/30/16 Oxybutynin [Ditropan] 5 mg PO DAILY 05/30/16 Fluconazole [Diflucan TAB] 200 mg PO QDAY #14 tablet 02/22/17 Docusate Sodium [Colace CAP] 100 mg PO BID PRN #60 capsule 03/29/17 Lactulose 10 gm PO DAILY PRN #150 ml 03/29/17 Ondansetron [Zofran ODT TAB] 4 mg PO Q8HR PRN #14 tab.rapdis 11/21/17 oxyCODONE /ACETAMINOPHEN [Percocet 5/325 mg] 1 tab PO Q6HR PRN #14 tablet 11/21/17 Sodium Phosphate,Ada-Dibasic [Fleet Enema] 188 ml RC ONCE 10/01/18 Albuterol Mdi (or & Nicu Only) [ProAir HFA Inhaler] 2 puff IH QID PRN #1 inhalation 10/03/18 Prednisone [predniSONE 10 mg (6-Day Pack, 21 Tabs)] 10 mg PO .TAPER #1 tab.ds.pk 10/03/18 guaiFENesin [Robitussin] 200 mg PO Q4H PRN 10 Days oral.liqd 10/03/18 levoFLOXacin [Levaquin] 750 mg PO QDAY #5 tablet 10/03/18 Acetaminophen/Codeine [Tylenol /Codeine # 3 tab] 1 tab PO Q4HR PRN #18 tablet 10/20/19 Naproxen [EC-Naprosyn] 500 mg PO BID #20 06/28/21 methOCARBAMOL [Robaxin TAB] 750 mg PO Q8H PRN #30 06/28/21 ED Review of Systems ROS: Stated complaint: HEADACHE Other details as noted in HPI Constitutional: denies: chills, fever Eyes: denies: eye pain, eye discharge, vision change ENT: denies: ear pain, throat pain Respiratory: denies: cough, shortness of breath, wheezing Cardiovascular: denies: chest pain, palpitations Endocrine: no symptoms reported Gastrointestinal: denies: abdominal pain, nausea, diarrhea Genitourinary: denies: urgency, dysuria, discharge Musculoskeletal: as per HPI, back pain. denies: joint swelling, arthralgia Skin: denies: rash, lesions Neurological: as per HPI, headache. denies: weakness, paresthesias Psychiatric: denies: anxiety, depression Hematological/Lymphatic: denies: easy bleeding, easy bruising ED Past Medical Hx - Past Medical History Hx Arthritis: Yes Hx Asthma: Yes Additional medical history: bladder pain, face lift,arthritis,asthma,cystoscopy,bladder tact, bronchitis - Surgical History Hx Cholecystectomy: Yes Additional Surgical History: Cystoscopy, Bladder tact, Facelift 01/2017 - Social History Smoking Status: Never Smoker Substance Use Type: None - Medications Home Medications: Home Medications Medication Instructions Recorded Confirmed Last Taken Type Budesoni/Formotero 160-4.5(Nf) 2 puff IH BID 05/30/16 10/01/18 05/30/16 History [Symbicort 160-4.5 (Nf)] Fesoterodine Fumarate [Toviaz] 4 mg PO QDAY 05/30/16 10/01/18 05/30/16 History Lansoprazole 30 mg PO DAILY 05/30/16 10/01/18 05/30/16 History Oxybutynin [Ditropan] 5 mg PO DAILY 05/30/16 10/01/18 05/30/16 History Fluconazole [Diflucan TAB] 200 mg PO QDAY #14 tablet 02/22/17 10/01/18 Unknown Rx Docusate Sodium [Colace CAP] 100 mg PO BID PRN #60 capsule 03/29/17 10/01/18 Unknown Rx Lactulose 10 gm PO DAILY PRN #150 ml 03/29/17 10/01/18 Unknown Rx Ondansetron [Zofran ODT TAB] 4 mg PO Q8HR PRN #14 tab.rapdis 11/21/17 10/01/18 Unknown Rx oxyCODONE /ACETAMINOPHEN [Percocet 1 tab PO Q6HR PRN #14 tablet 11/21/17 10/01/18 Unknown Rx 5/325 mg] Sodium Phosphate,Ada-Dibasic 188 ml RC ONCE 10/01/18 10/01/18 Unknown History [Fleet Enema] Albuterol Mdi (or & Nicu Only) 2 puff IH QID PRN #1 inhalation 10/03/18 Unknown Rx [ProAir HFA Inhaler] Prednisone [predniSONE 10 mg 10 mg PO .TAPER #1 tab.ds.pk 10/03/18 Unknown Rx (6-Day Pack, 21 Tabs)] guaiFENesin [Robitussin] 200 mg PO Q4H PRN 10 Days 10/03/18 Unknown Rx oral.liqd levoFLOXacin [Levaquin] 750 mg PO QDAY #5 tablet 10/03/18 Unknown Rx Acetaminophen/Codeine [Tylenol 1 tab PO Q4HR PRN #18 tablet 10/20/19 Unknown Rx /Codeine # 3 tab] Naproxen [EC-Naprosyn] 500 mg PO BID #20 06/28/21 Unknown Rx methOCARBAMOL [Robaxin TAB] 750 mg PO Q8H PRN #30 06/28/21 Unknown Rx ED Physical Exam - General Limitations: Language Barrier General appearance: alert, in no apparent distress - Head Head exam: Present: atraumatic, normocephalic - Eye Eye exam: Present: normal appearance, PERRL, EOMI Pupils: Present: normal accommodation - ENT ENT exam: Present: normal exam, normal orophraynx, mucous membranes moist - Neck Neck exam: Present: normal inspection, full ROM. Absent: tenderness, meningismus - Respiratory Respiratory exam: Present: normal lung sounds bilaterally. Absent: respiratory distress, wheezes, rales, rhonchi, stridor - Cardiovascular Cardiovascular Exam: Present: regular rate, normal rhythm, normal heart sounds. Absent: systolic murmur, diastolic murmur, rubs, gallop - GI/Abdominal GI/Abdominal exam: Present: soft, normal bowel sounds. Absent: distended, tenderness, guarding, rebound, rigid - Extremities Exam Extremities exam: Present: normal inspection, full ROM, normal capillary refill. Absent: tenderness, calf tenderness - Back Exam Back exam: Present: normal inspection, full ROM, tenderness (Mild tenderness to the upper trapezius muscles worse on the left). Absent: CVA tenderness (R), CVA tenderness (L) - Neurological Exam Neurological exam: Present: alert, oriented X3, CN II-XII intact, other (Normal [id number] and ndib-sg-vtop bilaterally). Absent: motor sensory deficit - Psychiatric Psychiatric exam: Present: normal affect, normal mood - Skin Skin exam: Present: warm, dry, intact, normal color. Absent: rash ED Course Vital Signs 06/28/21 09:12 Temperature 98.1 F Pulse Rate 67 Respiratory 20 Rate Blood Pressure 129/70 O2 Sat by Pulse 97 Oximetry - Reevaluation(s) Reevaluation #1: 06/28/21 09:45 Patient is well-appearing, no sudden onset headache making subarachnoid hemorrhage unlikely. No head injury making traumatic intracranial injury unlikely. Vital signs are unremarkable. No meningismus, nuchal rigidity negative Kernig and presents Without Fever Making Meningitis Unlikely. Patient had no temporal tenderness, jaw claudication or vision changes making temporal arteritis less likely. Patient has no history of cancer making static lesions unlikely. Neurologic exam was unremarkable NIH is 0 making CVA or TIA unlikely. ED Medical Decision Making - Radiology Data Radiology results: report reviewed, image reviewed CT HEAD WITHOUT CONTRAST INDICATION / CLINICAL INFORMATION: headache. TECHNIQUE: Axial imaging performed from the skull apex through the skull base without the use of contrast. Sagittal and coronal reformatted images. All CT scans at this location are performed using CT dose reduction for ALARA by means of automated exposure control. COMPARISON: None available. FINDINGS: CEREBRAL PARENCHYMA: No acute parenchymal abnormality is appreciated. Mild no nspecific chronic white matter changes are noted primarily in the posterior frontal lobes. No chronic infarct. Mild bilateral basal ganglia calcifications are noted. HEMORRHAGE: None. EXTRA-AXIAL SPACES: Normal in size and morphology for the patient's age. VENTRICULAR SYSTEM: Normal in size and morphology for the patient's age. MIDLINE SHIFT OR HERNIATION: None. CEREBELLUM / BRAINSTEM: No significant abnormality. CALVARIUM: No significant abnormality. ORBITS: Normal as visualized. PARANASAL SINUSES / MASTOID AIR CELLS: Normal as visualized. SOFT TISSUES of HEAD: No significant abnormality. ADDITIONAL FINDINGS: None. IMPRESSION: No acute intracranial abnormality. Signer Name: Ken Murrell Jr, MD Signed: 06/28/2021 10:07 AM Workstation Name: [id number] Transcribed By: TTR Dictated By: KEN MURRELL JR, MD Electronically Authenticated By: KEN MURRELL JR, MD Signed Date/Time: 06/28/21 1007 - Differential Diagnosis Migraine headache, cluster headache, tension headache, SAH Critical care attestation.: If time is entered above; I have spent that time in minutes in the direct care of this critically ill patient, excluding procedure time. ED Disposition Clinical Impression: Headache Qualifiers: Headache type: unspecified Headache chronicity pattern: acute headache Intractability: not intractable Qualified Code(s): R51.9 - Headache, unspecified Disposition: 01 HOME / SELF CARE / HOMELESS Is pt being admited?: No Condition: Stable Instructions: General Headache Without Cause Prescriptions: Naproxen [EC-Naprosyn] 500 mg PO BID #20 methOCARBAMOL [Robaxin TAB] 750 mg PO Q8H PRN #30 PRN Reason: Spasms Referrals: PRIMARY CARE, [Primary Care Provider] - 3-5 Days Time of Disposition: 10:35
--- NOTE | 2021-06-28 10:12 | Cat Scan Report ---
CT HEAD WITHOUT CONTRAST INDICATION / CLINICAL INFORMATION: headache. TECHNIQUE: Axial imaging performed from the skull apex through the skull base without the use of cont rast. Sagittal and coronal reformatted images. All CT scans at this location are performed using CT dose reduction for ALARA by means of automated exposure control. COMPARISON: None available. FINDINGS: CEREBRAL PARENCHYMA: No acute parenchymal abnormality is appreciated. Mild nonspecific chronic white matter changes are noted primarily in the posterior frontal lobes. No chronic infarct. Mild bilateral basal ganglia calcifications are noted. HEMORRHAGE: None. EXTRA-AXIAL SPACES: Normal in size and morphology for the patient's age. VENTRICULAR SYSTEM: Normal in size and morphology for the patient's age. MIDLINE SHIFT OR HERNIATION: None. CEREBELLUM / BRAINSTEM: No significant abnormality. CALVARIUM: No significant abnormality. ORBITS: Normal as visualized. PARANASAL SINUSES / MASTOID AIR CELLS: Normal as visualized. SOFT TISSUES of HEAD: No significant abnormality. ADDITIONAL FINDINGS: None. IMPRESSION: No acute intracranial abnormality. Signer Name: Ken Mathew Jr, MD Signed: 06/28/2021 10:07 AM Workstation Name: [id number]
[2021-06-28] MEDS ORDERED: KETOROLAC 30 MG/1 ML INJ IM ONE (10:30)
== END 2021-06-28 11:14 | disposition home or self-care (01) ==
LOC: ED 08:36
DX: R51.9 Headache, unspecified (principal); M19.90 Unspecified osteoarthritis, unspecified site; J45.909 Unspecified asthma, uncomplicated; Z90.49 Acquired absence of other specified parts of digestive tract; Z79.899 Other long term (current) drug therapy
CPT/HCPCS: 70450; 96372; 99283; J1885